=== PATIENT | male | born 1960 | race Caucasian/White ===

== ENCOUNTER → 2016-07-19 | Outpatient (CLI) | payer OTHER ==
[~2016-07-19] MED LIST: CATHETER FLUSH 10 ML SYR IV PRN; IOHEXOL 350 MG/ML 150 ML (OMNIPAQUE 350) VIAL IV ONE; NS 100 ML (IVPB) BAG IV ONE
[2016-07-19 16:47] LABS: ALANINE AMINOTRANSFERASE 16 U/L (0-55); ALBUMIN 3.9 G/DL (3.2-4.5); ANION GAP 10 MMOL/L (5-14); ASPARTATE AMINO TRANSFERASE 15 U/L (5-34); BILIRUBIN,TOTAL 0.6 MG/DL (0.1-1.0); BLOOD UREA NITROGEN 12 MG/DL (7-18); BUN/CREATININE RATIO 12; CARBON DIOXIDE 24 MMOL/L (21-32); CHLORIDE 105 MMOL/L (98-107); CREATININE SERUM 0.99 MG/DL (0.60-1.30); GFR ESTIMATED > 60; GLUCOSE 109 MG/DL (70-105); SODIUM 139 MMOL/L (135-145); TOTAL PROTEIN 6.1 G/DL (6.4-8.2)
--- NOTE | 2016-07-19 18:10 | Diagnostic Imaging Report ---
PROCEDURE: CT angiography of the chest with contrast. TECHNIQUE: Multiple contiguous axial images were obtained through the chest after uneventful bolus administration of intravenous contrast. Reconstructed CTA MIP acquisitions were also performed. INDICATION: Aortic aneurysm. Chest pain. COMPARISON: Exam compared to 04/17/2016. FINDINGS: There is some pulsation artifact, most notably at the proximal ascending aorta. Ascending aorta diameter of 4.2 cm is stable from prior. No dissection or rupture. The arch and descending thoracic aorta are stable in caliber. The visualized upper abdominal aorta is nonaneurysmal. No mediastinal or pericardial fluid or blood. There is no pleural effusion. There is no pneumothorax. No focal infiltrate. No lung mass. No thoracic lymphadenopathy. No acute soft tissue or osseous chest wall disease. Pulmonary arterial branches are patent. No evidence for PE. IMPRESSION: Ectasia of the ascending aorta, stable from prior. No appreciable dissection, mural hemorrhage, or rupture. Negative for PE. No acute abnormality or change identified. Dictated by: Dictated on workstation # [id number]
== END ==
LOC: RAD 16:11
PROVIDERS: ATTEND Nurse Practitioner Family
DX: I71.2 Thoracic aortic aneurysm, without rupture (principal)
CPT/HCPCS: 36415; 71275; 80053

== ENCOUNTER 2017-02-24 11:50 | Outpatient (CLI) | payer OTHER ==
[~2017-02-24] VITALS: Ht 182.9 cm; Wt 78.5 kg
[2017-02-25] MEDS ORDERED: ATOR40TA70 PO (10:21)
[2017-02-25] MEDS ORDERED: OMEP20TA7 PO (10:21)
[2017-02-25] MEDS ORDERED: CLON0.1T PO (10:21)
[2017-02-25] MEDS ORDERED: AMLO1TAB58 PO (10:21)
[2017-02-25] MEDS ORDERED: ASPI-586 PO (10:21)
[2017-02-25] MEDS ORDERED: CARV12.53 PO (10:21)
== END 2017-02-24 11:53 ==
LOC: PREOP 11:50
PROVIDERS: ATTEND Surgery
DX: Z01.818 Encounter for other preprocedural examination (principal); K92.1 Melena; R63.4 Abnormal weight loss; Z80.0 Family history of malignant neoplasm of digestive organs

== ENCOUNTER 2017-02-25 08:42 | Day surgery (SDC) | payer OTHER ==
[~2017-02-25] VITALS: Ht 182.9 cm; Wt 78.5 kg
[2017-02-25] MEDS ORDERED: LACTATED RINGERS 1,000 ML IV STA (09:05)
[2017-02-25] MEDS ORDERED: HURRICAINE EXT TUBE (BENZOCAINE) XX PRN (09:15)
[2017-02-25] MEDS ORDERED: FAMOTIDINE 20MG/2ML IV (PEPCID) ONE (09:28)
[2017-02-25] MEDS ORDERED: LACTATED RINGERS 1,000 ML IV ONE (09:28)
[2017-02-25] MEDS ORDERED: FAMOTIDINE 20MG/2ML IV (PEPCID) IVP ONE (09:30)
[2017-02-25 09:45] VITALS: BP 119/94
[2017-02-25] MEDS ORDERED: PROPOFOL INJECTION 50 ML IV ONE (10:12)
[2017-02-25] MEDS ORDERED: LIDOCAINE PF 2% 5 ML (XYLOCAINE) VIAL ONE (10:12)
[2017-02-25] MEDS ORDERED: OMEP20TA7 PO (10:21)
[2017-02-25] MEDS ORDERED: ASPI-586 PO (10:21)
[2017-02-25] MEDS ORDERED: CLON0.1T PO (10:21)
[2017-02-25] MEDS ORDERED: ATOR40TA70 PO (10:21)
[2017-02-25] MEDS ORDERED: AMLO1TAB58 PO (10:21)
[2017-02-25] MEDS ORDERED: CARV12.53 PO (10:21)
--- NOTE | 2017-02-25 10:21 | Progress Note-Pre Operative ---
Pre-Operative Progress Note H&P Reviewed The H&P was reviewed, patient examined and no changes noted. Date Seen by Provider: Feb 25, 2017 Time Seen by Provider: 10:20 Date H&P Reviewed: Feb 25, 2017 Time H&P Reviewed: 10:20 Pre-Operative Diagnosis: occult + stool, family hx colon cancer, weight loss DANNY BENITO DO Feb 25, 2017 10:21
--- NOTE | 2017-02-25 11:10 | Progress Note-Post Operative ---
Post-Operative Progess Note Surgeon (s)/Driver Utility Worker (s) Surgeon DANNY BENITO DO Driver Utility Worker: na Pre-Operative Diagnosis occult + stool, family hx colon cancer, weight loss Post-Operative Diagnosis slight gastritis, small hiatal hernia, normal colon Procedure & Operative Findings Date of Procedure 02/25/17 Procedure Performed/Findings egd c biopsy, colonoscopy Anesthesia Type per crusher wet ground mica Estimated Blood Loss Estimated blood loss (mL): none Specimens/Packing Specimens Removed antrum DANNY BENITO DO Feb 25, 2017 11:10
--- NOTE | 2017-02-25 11:12 | Discharge Inst-Simple/Standard ---
Discharge Inst-Standard Patient Instructions/Follow Up Plan of Care/Instructions/FU: 2 weeks adria Activity as Tolerated: Yes Discharge Diet: Regular Diet DANNY BENITO DO Feb 25, 2017 11:12
[2017-02-25 11:25] VITALS: BP 112/85
[2017-02-25 11:55] VITALS: BP 138/98
[2017-02-25 12:07] VITALS: BP 138/98
--- NOTE | 2017-02-25 15:14 | OPERATIVE REPORT ---
DATE OF SERVICE: 02/25/2017 PREOPERATIVE DIAGNOSIS: Occult positive stool, family history of colon cancer, weight loss. POSTOPERATIVE DIAGNOSIS: Slight gastritis, small hiatal hernia, normal colon. PROCEDURE: EGD with biopsy, colonoscopy. ANESTHESIA: Per CLERICAL WAREHOUSE WORKER. SURGEON: Danny Dewey DO ESTIMATED BLOOD LOSS: None. COMPLICATIONS: None. INDICATIONS: The patient is a 56-year-old male with occult positive stool, has family history of colon cancer and weight loss. He understands risks and benefits of procedures and wished to proceed with procedure. Consent was signed and on chart. DESCRIPTION OF PROCEDURE: The patient was taken to the endoscopy suite, placed in left lateral recumbent position. Timeout was performed. Scope was inserted in mouth, down the esophagus, stomach and into the duodenum without difficulty. There were no polyps, mass or ulcerations present within the duodenum. Scope was slowly retracted back. The stomach was further insufflated. Some slight erythematous changes, no polyps, masses or ulcerations. Biopsy of the antrum was obtained. Scope was also retroflexed noting no other pathology except for a small hiatal hernia. Scope was returned to its normal position, slowly withdrawn back into the distal esophagus which had no polyps, masses or ulcerations. No erythematous changes. The scope was slowly retracted back until completely removed, noting no other pathology. Digital rectal exam was performed. There were no palpable polyps, masses or ulcerations. The scope was inserted in the rectum and advanced all the way to the cecum with minimal difficulty. Prep was adequate with irrigation and suction. There are no polyps, mass or ulcerations in the cecum, ascending, transverse, descending and sigmoid colon. In the rectum, it was also retroflexed noting no other pathology. Scope was returned to its normal position, slowly withdrawn until completely removed. The patient tolerated the procedure well without any complications and taken to recovery room in stable condition. RECOMMENDATIONS: The patient will continue on current medications. We will follow up in 2 weeks on the biopsy. If he has any problems prior to that, he should be reevaluated at that time. Since he has family history of colon cancer, need repeat colonoscopy in 5 years unless he has any problems prior to that, he should be reevaluated at that time. Job ID: [id number] DocumentID: [id number] Dictated Date: 02/25/2017 11:14:33 Inspector Weights And Measures Date: 02/25/2017 15:13:40 Dictated By: DANNY DEWEY DO
== END 2017-02-25 12:08 | disposition home or self-care (01) ==
LOC: ENDO 08:42
PROVIDERS: ATTEND Surgery
DX: K29.70 Gastritis, unspecified, without bleeding (principal); K44.9 Diaphragmatic hernia without obstruction or gangrene; Z80.0 Family history of malignant neoplasm of digestive organs; I11.0 Hypertensive heart disease with heart failure; E78.5 Hyperlipidemia, unspecified; I50.9 Heart failure, unspecified; Z87.891 Personal history of nicotine dependence; Z79.82 Long term (current) use of aspirin; Z79.899 Other long term (current) drug therapy
CPT/HCPCS: 88305; 88342

== ENCOUNTER → 2017-03-19 | Outpatient (CLI) | payer OTHER ==
[~2017-03-19] MED LIST changes: +AMLO1TAB58 PO; +ASPI-586 PO; +ATOR40TA70 PO; +CARV12.53 PO; -CATHETER FLUSH 10 ML SYR IV PRN; +CLON0.1T PO; +OMEP20TA7 PO
[2017-03-19 11:10] LABS: BLOOD UREA NITROGEN 13 MG/DL (7-18); BUN/CREATININE RATIO 15; CREATININE SERUM 0.84 MG/DL (0.60-1.30); GFR ESTIMATED > 60
--- NOTE | 2017-03-19 13:03 | Diagnostic Imaging Report ---
PROCEDURE: CT angiography of the chest with and without contrast and CT of the abdomen and pelvis with and without contrast. TECHNIQUE: Non contrast-enhanced helical images were obtained through the chest, abdomen and pelvis. Contrast-enhanced thin section helical images were obtained through the chest, abdomen and pelvis with intravenous contrast timed for the optimal opacification of the arterial structures per departmental CTA protocol. Post-processing, retro reconstructions and interpretation of angiographic images of the vessels was performed. MIP reconstructions were performed and reviewed. INDICATION: Abdominal pain, weight loss, history of aortic aneurysm. COMPARISON: Chest CT performed on 07/19/2016 is available for comparison. No previous abdominopelvic imaging. FINDINGS: Chest: Aneurysmal dilatation of the ascending aorta measures 4.4 cm in maximal transverse diameter, previously 4.3 cm. Root of the sinotubular junction is 3.6 cm, stable. No dissection, mural hemorrhage, or rupture. Arch and descending thoracic aorta showed normal tapering distally and the aorta at the level of the diaphragmatic hiatus is unchanged at 2.9 cm. The pulmonary arterial branches are widely patent. There is no PE. There is no lung mass or acute infiltrate. No effusion or pneumothorax. No thoracic adenopathy. No acute soft tissue or osseous chest wall pathology. Abdomen and pelvis: Partly exophytic and oriented posteromedially off the lower pole of the left kidney is a heterogeneously enhancing soft tissue nodule measuring 2.3 x 1.6 cm. Just anterolateral to this solid mural nodule is a more simple-appearing cyst measuring 4.5 x 3.0 cm. This process is below the teswv-bi-wvzw of all previous chest CTs. Renal malignancy is suspected. An incidental midpole simple cyst measuring 1 cm is noted, separable from this process. The adrenal glands bilaterally are negative. The renal veins are patent. The cava is patent. There is no adrenal mass. Some tiny 5 to 6 mm periaortic retroperitoneal lymph nodes are within normal limits. No suspicious-appearing abdominal lymphadenopathy. The liver, gallbladder, bile ducts, spleen, and pancreas are negative. The celiac, the superior mesenteric, and the inferior mesenteric arteries as well as those vessels primary branches are all widely patent. The renal arteries bilaterally are widely patent. The abdominal aorta shows normal tapering and is nonaneurysmal. No mural hemorrhage, dissection, rupture, stenosis, or occlusion. The aortic bifurcation is patent. The common internal and external iliacs as well as common femorals and proximal SFAs and profunda branches are widely patent, normal in caliber, and unremarkable. No pelvic lymphadenopathy, ascites, or fluid collection. No destructive or suspicious osseous lesion. IMPRESSION: 1. Chest: Unruptured ascending aortic aneurysm measures 1 mm larger than prior without mural hemorrhage, dissection, or involvement of the great vessels. Negative for PE. No pulmonary nodule or thoracic lymphadenopathy. 2. CT abdomen: Exophytic heterogeneously enhancing solid mass in the right renal lower pole oriented posteriorly with an associated adjacent unilocular cyst. Renal cell carcinoma cannot be excluded. Urological consultation is advised. The adrenals are negative. There is no lymphadenopathy and there were no findings of metastatic disease. 3. Patent abdominal aorta, nonaneurysmal, with widely patent mesenteric and renal vascularity. 4. Pelvis: Vascular structures are normal. No lymphadenopathy, mass, ascites, or bony lesion. Dictated by: Dictated on workstation # [id number]
== END ==
LOC: RAD 10:38
PROVIDERS: ATTEND Nurse Practitioner Family
DX: N28.89 Other specified disorders of kidney and ureter; N28.1 Cyst of kidney, acquired; I71.2 Thoracic aortic aneurysm, without rupture
CPT/HCPCS: 36415; 71275; 74174; 82565; 84520

== ENCOUNTER → 2017-04-03 | Outpatient (CLI) | payer OTHER ==
[~2017-04-03] MED LIST changes: +GADOBUTROL 10 MMOL/10 ML (GADAVIST) VIAL IV ONE; -IOHEXOL 350 MG/ML 150 ML (OMNIPAQUE 350) VIAL IV ONE; -NS 100 ML (IVPB) BAG IV ONE
--- NOTE | 2017-04-03 12:56 | Diagnostic Imaging Report ---
PROCEDURE: MR imaging abdomen with and without contrast. TECHNIQUE: Multiplanar/multisequence MR imaging of the abdomen was performed with and without contrast. INDICATION: Weight loss. CONTRAST: 8 mL of Gadovist was administered intravenously. FINDINGS: There is a complex mass in the lower pole of the left kidney with a nodular solid enhancing component measuring 2.8 x 2.6 x 2 cm. There is a larger nonenhancing cystic component with a solid component measuring 4.1 x 3.8 x 4 cm. This is compatible with the Bosniak 4 complex cystic lesion, concerning for renal cell carcinoma. There is a simple cyst seen in the upper pole of the right kidney measuring 1.6 cm and other tiny fluid intensity lesions of less than 1 cm in the right kidney, too small to accurately characterize but likely related to cysts also. A similar finding in the left kidney is seen. The renal collecting system is normal with no hydronephrosis. The right renal vein appears patent. No lymphadenopathy in the upper abdomen is seen. The spleen, adrenal glands, liver, and gallbladder appear unremarkable. IMPRESSION: Complex mass in the lower pole of the right kidney with a predominantly cystic component and a 2.8 cm internal solid nodule, suggestive of renal cell carcinoma. The report was faxed to the office of Darci Kuo APRN, by [email or web address] PM. Dictated by: Dictated on workstation # [id number]
== END ==
LOC: RAD 09:17
PROVIDERS: ATTEND Nurse Practitioner Family
DX: N28.89 Other specified disorders of kidney and ureter (principal)
CPT/HCPCS: 74183

== ENCOUNTER → 2017-05-01 | Outpatient (CLI) | payer OTHER ==
[~2017-05-01] MED LIST changes: -GADOBUTROL 10 MMOL/10 ML (GADAVIST) VIAL IV ONE
== END ==
LOC: CARD 13:24
PROVIDERS: ATTEND Nurse Practitioner Family
DX: I71.9 Aortic aneurysm of unspecified site, without rupture (principal)
CPT/HCPCS: 93306

== ENCOUNTER → 2017-05-07 | Outpatient (CLI) | payer OTHER ==
[~2017-05-07] MED LIST changes: +CATHETER FLUSH 10 ML SYR IV PRN; +REGADENOSON 0.4 MG/5 ML SYR (LEXISCAN) IV ONE
--- NOTE | 2017-05-07 22:07 | STRESS TEST ---
DATE OF SERVICE: 05/07/2017 LEXISCAN MYOVIEW STRESS TEST REPORT REFERRING PHYSICIAN: Mariia Simon DO, [facility]. Baseline heart rate is 57. Baseline blood pressure 114/78. Baseline EKG is sinus rhythm with no ischemic changes. SUMMARY: The patient was injected with 10.88 mCi of technetium-99 Myoview and the resting images were obtained. Then, the patient received 0.4 mg of Lexiscan followed by 29.2 mCi of technetium-99 Myoview. Throughout the test, there were no EKG changes. The resting and stress images were reviewed and compared in the short axis, horizontal long axis and vertical long axis views. Review of the images showed diaphragmatic attenuation with no significant ischemia or infarction. SSS is 0. TID value is 1.07. On the gated images, the left ventricle appeared to be in normal size with normal contractility. Calculated ejection fraction 68%. CONCLUSION: 1. The patient tolerated Lexiscan well. 2. No significant ischemia or infarction on SPECT images. 3. Normal left ventricular size with normal contractility. Calculated ejection fraction 68%. Job ID: [id number] DocumentID: [id number] Dictated Date: 05/07/2017 14:22:11 Foundry Melt Supervisor Date: 05/07/2017 18:35:19 Dictated By: ANJELICA SHAFFER MD
== END ==
LOC: CARD 07:00
PROVIDERS: ATTEND Nurse Practitioner Family
DX: I71.9 Aortic aneurysm of unspecified site, without rupture (principal)
CPT/HCPCS: 78452; 93017

== ENCOUNTER → 2017-09-15 | Outpatient (CLI) | payer OTHER ==
[~2017-09-15] MED LIST changes: -CATHETER FLUSH 10 ML SYR IV PRN; -REGADENOSON 0.4 MG/5 ML SYR (LEXISCAN) IV ONE
--- NOTE | 2017-09-15 09:03 | Diagnostic Imaging Report ---
PROCEDURE: US Abdomen, limited. TECHNIQUE: Multiple realtime grayscale images were obtained over the abdomen in various projections. INDICATION: Right groin pain with intermittent bulging. Prior right nephrectomy. COMPARISON: None FINDINGS: Targeted ultrasound is performed over the right groin in the region of the palpable complaint. This is towards the medial end of scar on the abdominal wall. In this region, there is a 1.6 cm irregular hypoechoic lesion. There is no peristalsing bowel and there is no change with Valsalva. The patient was unable to reproduce the bulge for today's exam. This may represent some scarring rather than hernia although small hernia difficult to entirely exclude. IMPRESSION: 1.6 cm irregular hypoechoic lesion seen in the right groin near the medial end of the abdominal wall scar probably related to scarring although a subtle hernia not entirely excluded. No peristalsing bowel or change with Valsalva is seen, however. Dictated by: Dictated on workstation # [id number]
== END ==
LOC: RAD 07:59
PROVIDERS: ATTEND Nurse Practitioner Family
DX: R19.09 Other intra-abdominal and pelvic swelling, mass and lump (principal)
CPT/HCPCS: 76705

== ENCOUNTER 2017-10-01 05:36 | Outpatient (CLI) | payer OTHER ==
[~2017-10-01] VITALS: Ht 182.9 cm; Wt 78.5 kg
[2017-10-03] MEDS ORDERED: DOCU-143 PO (09:20)
[2017-10-03] MEDS ORDERED: ACHD5005 PO (09:20)
== END 2017-10-01 09:19 ==
LOC: PREOP 05:36
PROVIDERS: ATTEND Surgery
DX: Z01.818 Encounter for other preprocedural examination (principal); K40.90 Unilateral inguinal hernia, without obstruction or gangrene, not specified as recurrent

== ENCOUNTER 2017-10-03 05:58 | Day surgery (SDC) | payer OTHER ==
[~2017-10-03] VITALS: Ht 182.9 cm; Wt 78.5 kg
--- OUTSIDE RECORDS SUMMARY | 2017-10-03 06:02 | XMS REPORT | Continuity of Care Document ---
Author Author [facility] Organization [facility] Address Unknown Phone Unavailable Allergies Active Description Code Type Severity Reaction Onset Reported/Identified Relationship to Patient Clinical Status Yes No Allergy Information Available [id number] Drug Allergy Unknown N/A 2015 Yes No Known Drug Allergies [id number] Drug Allergy Unknown N/A 02/24/2017 Medications There is no data. Problems Date Dx Coded Attending Type Code Diagnosis Diagnosed By 05/03/2015 AWAIS RODRIGUEZ AUCTION CLERK Ot I71.9 05/08/2015 AWAIS RODRIGUEZ AUCTION CLERK Ot I71.9 05/08/2015 AWAIS RODRIGUEZ AUCTION CLERK Ot I71.9 06/14/2015 AWAIS RODRIGUEZ AUCTION CLERK Ot I71.9 07/14/2015 ANJELICA SHAFFER MD Ot I71.2 07/17/2015 AWAIS RODRIGUEZ AUCTION CLERK Ot I71.9 07/17/2015 AWAIS RODRIGUEZ AUCTION CLERK Ot I71.2 07/17/2015 ANJELICA SHAFFER MD J Ot I71.2 08/05/2015 ANJELICA SHAFFER MD Ot I71.2 04/09/2016 AWAIS RODRIGUEZ AUCTION CLERK Ot I71.9 AORTIC ANEURYSM OF UNSPECIFIED SITE, WIT 04/09/2016 AWAIS RODRIGUEZ AUCTION CLERK Ot I71.2 THORACIC AORTIC ANEURYSM, WITHOUT RUPTUR 04/09/2016 EDMUND KAN, ANJELICA J Ot I71.2 THORACIC AORTIC ANEURYSM, WITHOUT RUPTUR 04/10/2016 CRISTOFER FLORES AUCTION CLERK Ot I71.9 AORTIC ANEURYSM OF UNSPECIFIED SITE, WIT 04/18/2016 Ot I71.9 AORTIC ANEURYSM OF UNSPECIFIED SITE, WIT 04/19/2016 Ot I71.9 AORTIC ANEURYSM OF UNSPECIFIED SITE, WIT 05/14/2016 CRISTOFER FLORES AUCTION CLERK Ot I71.9 AORTIC ANEURYSM OF UNSPECIFIED SITE, WIT 07/19/2016 AWAIS RODRIGUEZ AUCTION CLERK Ot I71.9 AORTIC ANEURYSM OF UNSPECIFIED SITE, WIT 07/19/2016 AWAIS RODRIGUEZ AUCTION CLERK Ot I71.2 THORACIC AORTIC ANEURYSM, WITHOUT RUPTUR 07/19/2016 EDMUND KAN, ANJELICA Garcia Ot I71.2 THORACIC AORTIC ANEURYSM, WITHOUT RUPTUR 07/19/2016 FLORESCRISTOFER Pineda AUCTION CLERK Ot I71.9 AORTIC ANEURYSM OF UNSPECIFIED SITE, WIT 07/19/2016 Ot I71.9 AORTIC ANEURYSM OF UNSPECIFIED SITE, WIT 07/22/2016 CRISTOFER FLORES AUCTION CLERK Ot I71.2 THORACIC AORTIC ANEURYSM, WITHOUT RUPTUR 07/23/2016 CRISTOFER FLORES AUCTION CLERK Ot I71.2 THORACIC AORTIC ANEURYSM, WITHOUT RUPTUR 07/25/2016 FLORESCRISTOFER Pineda AUCTION CLERK Ot I71.2 THORACIC AORTIC ANEURYSM, WITHOUT RUPTUR 02/24/2017 DANNY BENITO DO Ot K92.1 MELENA 02/24/2017 DANNY BENITO DO Ot R63.4 ABNORMAL WEIGHT LOSS 02/24/2017 DANNY BENITO DO Ot Z01.818 ENCOUNTER FOR OTHER PREPROCEDURAL EXAMIN 02/24/2017 DANNY BENITO DO Ot Z80.0 FAMILY HISTORY OF MALIGNANT NEOPLASM OF 02/24/2017 DANNY BENITO DO Ot K92.1 MELENA 02/24/2017 DANNY BENITO DO Ot R63.4 ABNORMAL WEIGHT LOSS 02/24/2017 DANNY BENITO DO Ot Z01.818 ENCOUNTER FOR OTHER PREPROCEDURAL EXAMIN 02/24/2017 DANNY BENITO DO Ot Z80.0 FAMILY HISTORY OF MALIGNANT NEOPLASM OF 02/25/2017 DANNY BENITO DO Ot E78.5 HYPERLIPIDEMIA, UNSPECIFIED 02/25/2017 DANNY BENITO DO Ot I11.0 HYPERTENSIVE HEART DISEASE WITH HEART FA 02/25/2017 DANNY BENITO DO Ot I50.9 HEART FAILURE, UNSPECIFIED 02/25/2017 DANNY BENITO DO Ot K29.70 GASTRITIS, UNSPECIFIED, WITHOUT BLEEDING 02/25/2017 DANNY BENITO DO Ot K44.9 DIAPHRAGMATIC HERNIA WITHOUT OBSTRUCTION 02/25/2017 BENITO DO, DANNY D Ot Z79.82 LOAN REVIEW ANALYST (CURRENT) USE OF ASPIRIN 02/25/2017 BENITO DO DANNY D Ot Z79.899 OTHER LOAN REVIEW ANALYST (CURRENT) DRUG THERAPY 02/25/2017 BENITO DO DANNY D Ot Z80.0 FAMILY HISTORY OF MALIGNANT NEOPLASM OF 02/25/2017 BENITO DO DANNY D Ot Z87.891 PERSONAL HISTORY OF NICOTINE DEPENDENCE 03/04/2017 BENITO DO DANNY D Ot E78.5 HYPERLIPIDEMIA, UNSPECIFIED 03/04/2017 BENITO DO, DANNY D Ot I11.0 HYPERTENSIVE HEART DISEASE WITH HEART FA 03/04/2017 BENITO DO, DANNY D Ot I50.9 HEART FAILURE, UNSPECIFIED 03/04/2017 BENITO DO, DANNY D Ot K29.70 GASTRITIS, UNSPECIFIED, WITHOUT BLEEDING 03/04/2017 BENITO DO, DANNY D Ot K44.9 DIAPHRAGMATIC HERNIA WITHOUT OBSTRUCTION 03/04/2017 BENITO DO, DANNY D Ot Z79.82 LOAN REVIEW ANALYST (CURRENT) USE OF ASPIRIN 03/04/2017 BENITO DO DANNY D Ot Z79.899 OTHER LOAN REVIEW ANALYST (CURRENT) DRUG THERAPY 03/04/2017 BENITO DO, DANNY D Ot Z80.0 FAMILY HISTORY OF MALIGNANT NEOPLASM OF 03/04/2017 BENITO DO DANNY D Ot Z87.891 PERSONAL HISTORY OF NICOTINE DEPENDENCE 03/05/2017 BENITO DO DANNY D Ot E78.5 HYPERLIPIDEMIA, UNSPECIFIED 03/05/2017 BENITO DO, DANNY D Ot I11.0 HYPERTENSIVE HEART DISEASE WITH HEART FA 03/05/2017 THONG DO DANNY D Ot I50.9 HEART FAILURE, UNSPECIFIED 03/05/2017 BENITO DO, DANNY D Ot K29.70 GASTRITIS, UNSPECIFIED, WITHOUT BLEEDING 03/05/2017 BENITO DO, DANNY D Ot K44.9 DIAPHRAGMATIC HERNIA WITHOUT OBSTRUCTION 03/05/2017 BENITO DO DANNY D Ot Z79.82 CORRECTION (CURRENT) USE OF ASPIRIN 03/05/2017 BENITO DO DANNY D Ot Z79.899 OTHER LOAN REVIEW ANALYST (CURRENT) DRUG THERAPY 03/05/2017 BENITO DO, DANNY D Ot Z80.0 FAMILY HISTORY OF MALIGNANT NEOPLASM OF 03/05/2017 BENITO DO DANNY D Ot Z87.891 PERSONAL HISTORY OF NICOTINE DEPENDENCE 03/12/2017 THONG SHELLDANNY Ot E78.5 HYPERLIPIDEMIA, UNSPECIFIED 03/12/2017 THONG SHELLDANNY Ot I11.0 HYPERTENSIVE HEART DISEASE WITH HEART FA 03/12/2017 BENITO DANNY SHELL Ot I50.9 HEART FAILURE, UNSPECIFIED 03/12/2017 THONG SHELLDANNY Ot K29.70 GASTRITIS, UNSPECIFIED, WITHOUT BLEEDING 03/12/2017 THONG SHELLDANNY Ot K44.9 DIAPHRAGMATIC HERNIA WITHOUT OBSTRUCTION 03/12/2017 THONG SHELLDANNY Ot Z79.82 CORRECTION (CURRENT) USE OF ASPIRIN 03/12/2017 BENITO DANNY Ot Z79.899 OTHER CORRECTION (CURRENT) DRUG THERAPY 03/12/2017 DANNY BENITO DO Ot Z80.0 FAMILY HISTORY OF MALIGNANT NEOPLASM OF 03/12/2017 THONG SHELLDANNY Ot Z87.891 PERSONAL HISTORY OF NICOTINE DEPENDENCE 03/20/2017 CRISTOFER FLORES AUCTION CLERK Ot I71.2 THORACIC AORTIC ANEURYSM, WITHOUT RUPTUR 03/20/2017 CRISTOFER FLORES AUCTION CLERK Ot N28.1 CYST OF KIDNEY, ACQUIRED 03/20/2017 CRISTOFER FLORES AUCTION CLERK Ot N28.89 OTHER SPECIFIED DISORDERS OF KIDNEY AND 09/25/2017 AWAIS RODRIGUEZ AUCTION CLERK Ot I71.9 AORTIC ANEURYSM OF UNSPECIFIED SITE, WIT 09/25/2017 AWAIS RODRIGUEZ AUCTION CLERK Ot I71.2 THORACIC AORTIC ANEURYSM, WITHOUT RUPTUR 09/25/2017 EDMUND KAN, ANJELICA Garcia Ot I71.2 THORACIC AORTIC ANEURYSM, WITHOUT RUPTUR 09/25/2017 CRISTOFER FLORES AUCTION CLERK Ot I71.9 AORTIC ANEURYSM OF UNSPECIFIED SITE, WIT 09/25/2017 Ot I71.9 AORTIC ANEURYSM OF UNSPECIFIED SITE, WIT 09/25/2017 CRISTOFER FLORES AUCTION CLERK Ot I71.2 THORACIC AORTIC ANEURYSM, WITHOUT RUPTUR 09/25/2017 CRISTOFER FLORES AUCTION CLERK Ot I71.2 THORACIC AORTIC ANEURYSM, WITHOUT RUPTUR 09/25/2017 CRISTOFER FLORES AUCTION CLERK Ot N28.1 CYST OF KIDNEY, ACQUIRED 09/25/2017 CRISTOFER FLORES AUCTION CLERK Ot N28.89 OTHER SPECIFIED DISORDERS OF KIDNEY AND 09/25/2017 CRISTOFER FLORES AUCTION CLERK Ot N28.89 OTHER SPECIFIED DISORDERS OF KIDNEY AND 09/25/2017 CRISTOFER FLORES AUCTION CLERK Ot I71.9 AORTIC ANEURYSM OF UNSPECIFIED SITE, WIT 09/25/2017 CRISTOFER FLORES AUCTION CLERK Ot I71.9 AORTIC ANEURYSM OF UNSPECIFIED SITE, WIT 09/25/2017 CRISTOFER FLORES AUCTION CLERK Ot R19.09 OTHER INTRA-ABDOMINAL AND PELVIC SWELLIN Procedures There is no data. Results Test Result Range [id number] - 04/09/16 10:59 Serum or plasma urea nitrogen measurement (mass/volume) 11 mg/dL 7-18 Serum or plasma creatinine measurement (mass/volume) 0.90 mg/dL 0.60-1.30 Serum or plasma urea nitrogen/creatinine mass ratio 12 NRG Serum or plasma creatinine measurement with calculation of estimated glomerular filtration rate > NRG CBC With Differential/Platelet - 06/07/16 08:13 WBC 6.8 x10E3/uL 3.4-10.8 RBC 4.53 x10E6/uL 4.14-5.80 Hemoglobin 13.1 g/dL 12.6-17.7 Hematocrit 38.5 % 37.5-51.0 MCV 85 fL 79-97 MCH 28.9 pg 26.6-33.0 MCHC 34.0 g/dL 31.5-35.7 RDW 13.1 % 12.3-15.4 Platelets 184 x10E3/uL 150-379 Neutrophils 64 % Lymphs 24 % Monocytes 9 % Eos 2 % Basos 1 % Neutrophils (Absolute) 4.4 x10E3/uL 1.4-7.0 Lymphs (Absolute) 1.6 x10E3/uL 0.7-3.1 Monocytes(Absolute) 0.6 x10E3/uL 0.1-0.9 Eos (Absolute) 0.2 x10E3/uL 0.0-0.4 Baso (Absolute) 0.0 x10E3/uL 0.0-0.2 Immature Granulocytes 0 % Immature Grans (Abs) 0.0 x10E3/uL 0.0-0.1 Comp. Metabolic Panel (14) - 06/07/16 08:13 Glucose, Serum 100 mg/dL 65-99 BUN 12 mg/dL 6-24 Creatinine, Serum 0.89 mg/dL 0.76-1.27 eGFR If NonAfricn Am 96 mL/min/1.73 >59 eGFR If Africn Am 111 mL/min/1.73 >59 BUN/Creatinine Ratio 13 9-20 Sodium, Serum 145 mmol/L 134-144 Potassium, Serum 4.1 mmol/L 3.5-5.2 Chloride, Serum 106 mmol/L 96-106 Carbon Dioxide, Total 25 mmol/L 18-29 Calcium, Serum 9.5 mg/dL 8.7-10.2 Protein, Total, Serum 6.3 g/dL 6.0-8.5 Albumin, Serum 3.8 g/dL 3.5-5.5 Globulin, Total 2.5 g/dL 1.5-4.5 A/G Ratio 1.5 1.1-2.5 Bilirubin, Total 0.5 mg/dL 0.0-1.2 Alkaline Phosphatase, S 87 IU/L 39-117 AST (SGOT) 18 IU/L 0-40 ALT (SGPT) 16 IU/L 0-44 Lipid Panel - 06/07/16 08:13 Cholesterol, Total 126 mg/dL 100-199 Triglycerides 111 mg/dL 0-149 HDL Cholesterol 38 mg/dL >39 VLDL Cholesterol Fermin 22 mg/dL 5-40 LDL Cholesterol Calc 66 mg/dL 0-99 Hemoglobin A1c - 06/07/16 08:13 Hemoglobin A1c 5.6 % 4.8-5.6 Thyroid Rock Profile - 06/07/16 08:13 TSH 1.180 uIU/mL 0.450-4.500 Comprehensive metabolic panel - 07/19/16 16:20 Serum or plasma sodium measurement (moles/volume) 139 mmol/L 135-145 Serum or plasma potassium measurement (moles/volume) 4.0 mmol/L 3.6-5.0 Serum or plasma chloride measurement (moles/volume) 105 mmol/L 98-107 Carbon dioxide 24 mmol/L 21-32 Serum or plasma anion gap determination (moles/volume) 10 mmol/L 5-14 Serum or plasma urea nitrogen measurement (mass/volume) 12 mg/dL 7-18 Serum or plasma creatinine measurement (mass/volume) 0.99 mg/dL 0.60-1.30 Serum or plasma urea nitrogen/creatinine mass ratio 12 NRG Serum or plasma creatinine measurement with calculation of estimated glomerular filtration rate > NRG Serum or plasma glucose measurement (mass/volume) 109 mg/dL 70-105 Serum or plasma calcium measurement (mass/volume) 9.0 mg/dL 8.5-10.1 Serum or plasma total bilirubin measurement (mass/volume) 0.6 mg/dL 0.1-1.0 Serum or plasma alkaline phosphatase measurement (enzymatic activity/volume) 85 U/L 40-136 Serum or plasma aspartate aminotransferase measurement (enzymatic activity/ volume) 15 U/L 5-34 Serum or plasma alanine aminotransferase measurement (enzymatic activity/volume ) 16 U/L 0-55 Serum or plasma protein measurement (mass/volume) 6.1 g/dL 6.4-8.2 Serum or plasma albumin measurement (mass/volume) 3.9 g/dL 3.2-4.5 CBC With Differential/Platelet - 01/13/17 16:02 WBC 5.7 x10E3/uL 3.4-10.8 RBC 4.28 x10E6/uL 4.14-5.80 Hemoglobin 12.3 g/dL 12.6-17.7 Hematocrit 35.4 % 37.5-51.0 MCV 83 fL 79-97 MCH 28.7 pg 26.6-33.0 MCHC 34.7 g/dL 31.5-35.7 RDW 13.4 % 12.3-15.4 Platelets 148 x10E3/uL 150-379 Neutrophils 64 % Lymphs 26 % Monocytes 8 % Eos 2 % Basos 0 % Neutrophils (Absolute) 3.7 x10E3/uL 1.4-7.0 Lymphs (Absolute) 1.5 x10E3/uL 0.7-3.1 Monocytes(Absolute) 0.4 x10E3/uL 0.1-0.9 Eos (Absolute) 0.1 x10E3/uL 0.0-0.4 Baso (Absolute) 0.0 x10E3/uL 0.0-0.2 Immature Granulocytes 0 % Immature Grans (Abs) 0.0 x10E3/uL 0.0-0.1 Comp. Metabolic Panel (14) - 01/13/17 16:02 Glucose, Serum 111 mg/dL 65-99 BUN 17 mg/dL 6-24 Creatinine, Serum 1.22 mg/dL 0.76-1.27 eGFR If NonAfricn Am 66 mL/min/1.73 >59 eGFR If Africn Am 77 mL/min/1.73 >59 BUN/Creatinine Ratio 14 9-20 Sodium, Serum 136 mmol/L 134-144 Potassium, Serum 3.7 mmol/L 3.5-5.2 Chloride, Serum 97 mmol/L 96-106 Carbon Dioxide, Total 22 mmol/L 18-29 Calcium, Serum 9.1 mg/dL 8.7-10.2 Protein, Total, Serum 6.1 g/dL 6.0-8.5 Albumin, Serum 3.8 g/dL 3.5-5.5 Globulin, Total 2.3 g/dL 1.5-4.5 A/G Ratio 1.7 1.2-2.2 Bilirubin, Total 0.6 mg/dL 0.0-1.2 Alkaline Phosphatase, S 89 IU/L 39-117 AST (SGOT) 15 IU/L 0-40 ALT (SGPT) 10 IU/L 0-44 Vitamin D, 25-Hydroxy - 01/13/17 16:02 Vitamin D, 25-Hydroxy 32.3 ng/mL 30.0-100.0 Thyroid Rock Profile - 01/13/17 16:02 TSH 1.410 uIU/mL 0.450-4.500 [id number] - 03/19/17 10:49 Serum or plasma urea nitrogen measurement (mass/volume) 13 mg/dL 7-18 Serum or plasma creatinine measurement (mass/volume) 0.84 mg/dL 0.60-1.30 Serum or plasma urea nitrogen/creatinine mass ratio 15 NRG Serum or plasma creatinine measurement with calculation of estimated glomerular filtration rate > NRG Encounters ACCT No. Visit Date/Time Discharge Status Pt. Type Provider Facility Loc./Unit Complaint [id number] 10/01/2017 05:36:00 10/01/2017 09:19:00 DIS Outpatient DANNY BENITO DO [facility] PREOP RIGHT INGUINAL HERNIA [id number] 09/15/2017 07:59:00 09/15/2017 23:59:59 CLS Outpatient CRISTOFER FLORES AUCTION CLERK [facility] RAD RT GROIN PAIN R10.31 [id number] 05/07/2017 07:00:00 05/07/2017 23:59:59 CLS Outpatient CRISTOFER FLORES AUCTION CLERK [facility] CARD AORTIC ANEURYSM [id number] 05/01/2017 13:24:00 05/01/2017 23:59:59 CLS Outpatient CRISTOFER FLORES AUCTION CLERK [facility] CARD I71.9 [id number] 04/03/2017 09:17:00 04/03/2017 23:59:59 CLS Outpatient CRISTOFER FLORES AUCTION CLERK [facility] RAD WEIGHT LOSS [id number] 03/19/2017 10:38:00 03/19/2017 23:59:59 CLS Outpatient CRISTOFER FLORES AUCTION CLERK [facility] RAD I71.9 AORTIC ANEURYSM [id number] 03/14/2017 09:23:00 03/14/2017 23:59:59 CLS Preadmit CRISTOFER FLORES AUCTION CLERK [facility] RAD WEIGHT LOSS [id number] 02/25/2017 08:42:00 02/25/2017 12:08:00 DIS Outpatient DANNY BENITO DO [facility] ENDO OCCULT POS. FAM HX WT LOSS [id number] 02/24/2017 11:50:00 02/24/2017 11:53:00 DIS Outpatient DANNY BENITO DO [facility] PREOP COLONOSCOPY/ EGD [id number] 01/27/2017 07:29:00 01/27/2017 23:59:59 CLS Preadmit CRISTOFER FLORES AUCTION CLERK [facility] RAD AORTIC ANEURYSM [id number] 07/19/2016 16:11:00 07/19/2016 23:59:59 CLS Outpatient CRISTOFER FLORES AUCTION CLERK [facility] RAD THORACIC AORTIC ANEURYSM [id number] 04/09/2016 10:44:00 04/09/2016 23:59:59 CLS Outpatient CRISTOFER FLORES AUCTION CLERK [facility] RAD I71.9 [id number] 07/11/2015 14:23:00 07/11/2015 23:59:59 CLS Outpatient EDMUND KAN, ANJELICA Garcia [facility] RAD THORAIC AORTO ANYURESUM [id number] 06/14/2015 14:15:00 06/14/2015 23:59:59 CLS Outpatient AWAIS RODRIGUEZ APRN [facility] RAD AORTIC ANEURYSM [id number] 05/01/2015 08:47:00 05/01/2015 23:59:59 CLS Outpatient AWAIS RODRIGUEZ APRN [facility] RAD AA [id number] 10/03/2017 08:00:00 PEN Preadmit DANNY BENITO DO [facility] RIGHT INGUINAL HERNIA [id number] 04/17/2016 08:56:00 Document Registration [id number] 06/08/2016 08:06:00 Document Registration [id number] 08/30/2017 12:50:00 08/30/2017 23:59:59 CLS Outpatient CRISTOFER FLORES [facility] [id number] 01/14/2017 11:07:00 Document Registration
[2017-10-03 06:10] VITALS: BP 148/99
[2017-10-03] MEDS ORDERED: ceFAZolin 2 GM IV Premixed 50 ML IV ONE (06:30)
[2017-10-03] MEDS: LACTATED RINGERS 1,000 ML IV PRN ×2 (06:55→09:00)
[2017-10-03] MEDS ORDERED: LACTATED RINGERS 1,000 ML IV PRN (07:20)
[2017-10-03] MEDS ORDERED: LIDOCAINE 1% INJ 20 ML 20 ML VIAL ONE (07:26)
[2017-10-03] MEDS ORDERED: BUPIVACAINE 0.5% 30 ML (SENSORCAINE) VIAL ONE (07:26)
[2017-10-03] MEDS ORDERED: PROPOFOL INJECTION 50 ML IV ONE (07:29)
[2017-10-03] MEDS ORDERED: ROCURONIUM 10 MG/ML 5 ML SYRINGE IV ONE (07:29)
[2017-10-03] MEDS ORDERED: ONDANSETRON 4 MG/2 ML (SDV) Z0FRAN ONE (07:29)
[2017-10-03] MEDS ORDERED: fentaNYL INJECTION 100 MCG/2 ML AMP ONE (07:29)
[2017-10-03] MEDS ORDERED: DEXAMETHASONE 10 MG/ML (DECADRON) 1 ML VIAL ONE (07:29)
[2017-10-03] MEDS ORDERED: LIDOCAINE PF 2% 5 ML (XYLOCAINE) VIAL ONE (07:29)
[2017-10-03] MEDS ORDERED: FAMOTIDINE 20MG/2ML IV (PEPCID) IV ONE (07:30)
[2017-10-03] MEDS ORDERED: MIDAZOLAM 2 MG/2 ML (VERSED) VIAL ONE (07:30)
[2017-10-03] MEDS ORDERED: SEVOFLURANE (ULTANE) 15 ML INHAL SOLN ONE (08:36)
[2017-10-03] MEDS ORDERED: GLYCOPYRROLATE 0.2 MG/ML (ROBINUL) 2 ML VIAL ONE (08:36)
[2017-10-03] MEDS ORDERED: NEOSTIGMINE 1 MG/ML 5 ML SYRINGE ONE (08:36)
[2017-10-03] MEDS ORDERED: KETOROLAC 30 MG/ML VIAL ONE (09:08)
--- NOTE | 2017-10-03 09:16 | Progress Note-Pre Operative ---
Pre-Operative Progress Note H&P Reviewed The H&P was reviewed, patient examined and no changes noted. Date Seen by Provider: Oct 03, 2017 Time Seen by Provider: 08:00 Date H&P Reviewed: Oct 03, 2017 Time H&P Reviewed: 08:00 Pre-Operative Diagnosis: right inguinal hernia DANNY BENITO DO Oct 03, 2017 09:16
--- NOTE | 2017-10-03 09:17 | Progress Note-Post Operative ---
Post-Operative Progess Note Surgeon (s)/Secretary To Board Of Commissioners (s) Surgeon DANNY BENITO DO Secretary To Board Of Commissioners: na Pre-Operative Diagnosis right inguinal hernia Post-Operative Diagnosis indirect inguinal hernia right Procedure & Operative Findings Date of Procedure 10/03/17 Procedure Performed/Findings open right inguinal hernia Anesthesia Type general Estimated Blood Loss Estimated blood loss (mL): minimal Specimens/Packing Specimens Removed hernia sac DANNY BENITO DO Oct 03, 2017 09:17
[2017-10-03] MEDS ORDERED: DOCU-143 PO (09:20)
[2017-10-03] MEDS ORDERED: ACHD5005 PO (09:20)
--- NOTE | 2017-10-03 09:22 | Discharge Inst-Simple/Standard ---
Discharge Inst-Standard Discharge Medications New, Converted or Re-Newed RX: RX on Chart Patient Instructions/Follow Up Plan of Care/Instructions/FU: 2-3 weeks Maco Activity as Tolerated: No Discharge Diet: Regular Diet Other Inst to Patient Follow up Appt: Make appointment for 2-3 week. Instructions: No lifting greater than 10 pounds. No strenuous activity. May shower in 24 hours, no tub bath or soaking. Use incentive spirometer at home as directed. No Smoking Skin/Wound Care: You have special glue over incision it will fall off on its own. Symptoms to Report: Appetite Changes, Extremity Discoloration, Numbness/Tingling, Swelling Increased , Bleeding Excessive, Eyesight Changes, Pain Increased, Urine Color Change, Constipation(Persistent), Fever over 101 degree F, Pain/Pressure in chest, Urinating Difficulty, Cough Up/Vomit Blood, Heart Beat Irreg/Pounding, Pain/ Pressure in jaw, Vaginal Bleeding Increase, Cramps in feet or legs, Lightheadedness, Pain/Pressure in shoulder, Diarrhea(Persistent), Memory Changes Suddenly, Questions/Concerns, Weight gain consecutive days, Dizziness/ Fainting, Nausea/Vomiting, Shortness of Breath, Weight gain over 2 pounds If questions or concerns contact your physician Or seek help at emergency department. DANNY BENITO DO Oct 03, 2017 09:22
[2017-10-03] MEDS ORDERED: HYDROcodone/APAP 5 MG/325 MG (LORTAB) TAB PO PRN (09:30)
[2017-10-03] MEDS ORDERED: fentaNYL INJECTION 100 MCG/2 ML AMP IVP PRN (09:45)
[2017-10-03] MEDS ORDERED: HYDROmorphone (DILAUDID) 2 MG/ML VIAL IVP PRN (09:45)
[2017-10-03] MEDS ORDERED: MEPERIDINE (DEMEROL) INJ 50 MG/ML IVP PRN (09:45)
[2017-10-03] MEDS ORDERED: ONDANSETRON 4 MG/2 ML (SDV) Z0FRAN IVP PRN (09:45)
[2017-10-03 10:25] VITALS: BP 135/97
[2017-10-03 10:55] VITALS: BP 140/99
[2017-10-03 11:25] VITALS: BP 146/102
--- NOTE | 2017-10-03 16:53 | OPERATIVE REPORT ---
DATE OF SERVICE: 10/03/2017 PREOPERATIVE DIAGNOSIS: Right inguinal hernia. POSTOPERATIVE DIAGNOSIS: Indirect right inguinal hernia. PROCEDURE: Open right inguinal hernia repair. SURGEON: Danny Dewey DO. INDUSTRIAL CHEMICALS SUPERVISOR: Dr. Albarado, assisted in retraction, dissection and closure. ANESTHESIA: General. ESTIMATED BLOOD LOSS: Minimal. COMPLICATIONS: None. INDICATIONS: The patient is a 57-year-old male with a right inguinal hernia. He understands risks and benefits of procedure and wished to proceed with procedure. Consent was signed on the chart. DESCRIPTION OF PROCEDURE: The patient was taken to the operating suite, was prepped and draped in sterile fashion. Surgical pause was performed. Local anesthetic was infiltrated into the right inguinal area. A #15 blade scalpel was used to make incision and cautery was used to taken down to the external oblique. External oblique was then opened down through the external ring. The spermatic cord was then dissected around and a Hema drain was placed around it and secured. There is no floor defect. There was an indirect inguinal hernia present. The hernia sac was then dissected off of the cord and this was then ligated with a 2-0 Vicryl. The Parietex mesh was then secured to Mariano's ligament and incorporated the mesh around the spermatic cord. Placed under the external oblique with adequate overlay. The wound was irrigated with copious amounts of irrigation. Hemostasis was achieved. The external oblique was then closed using 3-0 Vicryl in a running fashion recreating the external ring. Subcutaneous tissues were then reapproximated using 3-0 Vicryl. Skin was then closed using 4-0 Monocryl to close the skin and the Skin Affix was then placed over the incision after washed and dried. The patient tolerated the procedure well without any complications and taken to recovery room in stable condition. Job ID: [id number] DocumentID: [id number] Dictated Date: 10/03/2017 09:27:41 Roentgenology Teacher Date: 10/03/2017 16:53:11 Dictated By: DANNY DEWEY DO
== END 2017-10-03 11:35 | disposition home or self-care (01) ==
LOC: SDC 05:58
PROVIDERS: ATTEND Surgery
DX: K40.90 Unilateral inguinal hernia, without obstruction or gangrene, not specified as recurrent (principal); I10 Essential (primary) hypertension; E78.5 Hyperlipidemia, unspecified; K21.9 Gastro-esophageal reflux disease without esophagitis; Z79.82 Long term (current) use of aspirin; Z79.899 Other long term (current) drug therapy; Z87.891 Personal history of nicotine dependence
CPT/HCPCS: 87081; 94664

== ENCOUNTER → 2018-03-13 | Outpatient (CLI) | payer OTHER ==
[~2018-03-13] MED LIST changes: +ACHD5005 PO; +DOCU-143 PO
[2018-03-13 09:33] LABS: ALBUMIN 3.8 GM/DL (3.2-4.5); BILIRUBIN,TOTAL 0.8 MG/DL (0.1-1.0); CALCIUM 9.2 MG/DL (8.5-10.1); CREATININE SERUM 1.52 MG/DL (0.60-1.30); TOTAL PROTEIN 6.2 GM/DL (6.4-8.2)
== END ==
LOC: RAD 09:00
PROVIDERS: ATTEND Nurse Practitioner Family
DX: I71.9 Aortic aneurysm of unspecified site, without rupture (principal); R79.89 Other specified abnormal findings of blood chemistry; Z53.8 Procedure and treatment not carried out for other reasons
CPT/HCPCS: 36415; 80053

== ENCOUNTER → 2020-02-10 | Outpatient (CLI) | payer OTHER | LOC: CARD 08:52 | PROVIDERS: ATTEND Internal Medicine Cardiovascular Disease | DX: I08.1 Rheumatic disorders of both mitral and tricuspid valves (principal); I25.10 Atherosclerotic heart disease of native coronary artery without angina pectoris; I10 Essential (primary) hypertension; I71.2 Thoracic aortic aneurysm, without rupture; E78.5 Hyperlipidemia, unspecified | CPT/HCPCS: 93306 ==

== ENCOUNTER → 2020-08-15 | Outpatient (CLI) | payer OTHER ==
[~2020-08-15] MED LIST changes: +CLN.1T PO; -CLON0.1T PO
--- NOTE | 2020-08-15 15:56 | Diagnostic Imaging Report ---
INDICATION: Elevated parathyroid hormone. COMPARISON: None FINDINGS: AP Spine L1-L4: [BMD (g/cm2): 1.138] [T-Score: -0.9] [Z-Score: -0.3] [BMD Previous: NA] [BMD % Change: NA] LT Hip Neck: [BMD (g/cm2): 0.909] [T-Score: -1.2] [Z-Score: -0.2] LT Hip Total: [BMD (g/cm2):0.951] [T-Score:-1.0] [Z-Score: -0.4] [BMD Previous: NA] [BMD % Change: NA] RT Hip Neck: [BMD (g/cm2):0.934] [T-Score:-1.0] [Z-Score:0.0] RT Hip Total: [BMD (g/cm2):0.961] [T-score:-1.0] [Z-Score:-0.3] [BMD Previous:NA] [BMD % Change:NA] *Indicates significant change from prior examination based on 95% confidence level. World Health Organization criteria for BMD interpretation classify patients as Normal (T-score at or above -1.0), Osteopenic (T-score between -1.0 and -2.5) or Osteoporotic (T-score at or below -2.5). LIMITATIONS AND MODIFICATION: None. FRACTURE RISK (FRAX SCORE): The ten year probability of (%): Major Osteoporotic Fracture: [4.9] Hip Fracture: [0.5] IMPRESSION: 1. Normal bone mineral density. 2. Baseline examination. 3. See below National Osteoporosis Foundation guidelines on when to potentially initiate pharmacologic therapy. Based on the National Osteoporosis Foundation Guidelines, pharmacologic treatment should be initiated in any of the following, unless clinical conditions suggest otherwise: * Any patient with prior fragility fracture of the hip or vertebrae. A spine fracture indicates 5X risk for subsequent spine fracture and 2X risk for subsequent hip fracture. * Osteoporosis (T-score <-2.5). * Postmenopausal women and men age 50 and older with low bone mass/osteopenia (T-score between -1.0 and -2.5) by DXA and 10-year major osteoporotic fracture greater than 20% or a 10-year probability of hip fracture greater than 3%. These fracture risks are supplied above in the FRAX score, if applicable. * Clinician judgement and/or patient preferences may indicate treatment for people with 10-year fracture probabilities above or below these levels. Dictated by: Dictated on workstation # [id number]
== END ==
LOC: RAD 12:38
PROVIDERS: ATTEND Nurse Practitioner
DX: E34.9 Endocrine disorder, unspecified (principal)
CPT/HCPCS: 77080

== ENCOUNTER → 2020-09-08 | Outpatient (CLI) | payer OTHER ==
--- NOTE | 2020-09-08 08:40 | Diagnostic Imaging Report ---
PROCEDURE: CT chest without contrast. TECHNIQUE: Multiple contiguous axial images were obtained through the chest without the use of intravenous contrast. Auto Exposure Controls were utilized during the CT exam to meet ALARA standards for radiation dose reduction. INDICATION: Kidney cancer. FINDINGS: The previous CTA chest exam of 03/19/2017 noted aneurysmal dilatation of the ascending aorta. The aorta measures approximately 4.4 cm in maximum transverse diameter. On this exam, the aorta has increased in size and is now estimated to be 4.7 x 4.6 cm in maximum transverse and AP diameters. The root of the aorta measures 3.9 cm as opposed to 3.6 cm previously (image 27 series 602). There is no periaortic fluid collection to suggest an acute abnormality of the aorta. The heart is borderline enlarged but stable when compared to the prior exam. Coronary calcifications are again noted. There is no obvious mediastinal or hilar adenopathy. The thyroid gland is generally unremarkable. There are mild emphysematous changes involving both lungs. There is no evidence for failure, pneumonia or for pleural effusion. The small 3 mm nodule along the periphery of left lung base seen previously is again evident and no different (image 80 series 2). The sections through the upper abdomen failed to show any sign of an acute abnormality. The bone windows are unremarkable for fracture or for destructive lesion. IMPRESSION: 1. The aneurysm of the ascending aorta seen previously has increased in size slightly. The aneurysm is now estimated to be 4.7 x 4.6 cm. The root of the aorta is also somewhat more dilated than noted previously and this measures 3.9 cm as opposed to 3.6 cm previously. 2. There is no acute cardiopulmonary abnormality identified. 3. There is coronary artery disease. Dictated by: Dictated on workstation # [id number]
== END ==
LOC: RAD 07:45
PROVIDERS: ATTEND Nurse Practitioner
DX: C64.9 Malignant neoplasm of unspecified kidney, except renal pelvis (principal); I71.2 Thoracic aortic aneurysm, without rupture; I25.10 Atherosclerotic heart disease of native coronary artery without angina pectoris
CPT/HCPCS: 71250

== ENCOUNTER → 2020-11-14 | Outpatient (CLI) | payer OTHER ==
[2020-11-14 12:24] LABS: ALBUMIN 3.6 GM/DL (3.2-4.5); POTASSIUM 3.7 MMOL/L (3.6-5.0)
[2020-11-14 12:25] LABS: CALCIUM 9.1 MG/DL (8.5-10.1)
[2020-11-14 12:27] LABS: TOTAL PROTEIN 6.2 GM/DL (6.4-8.2)
[2020-11-14 12:29] LABS: BILIRUBIN,TOTAL 0.5 MG/DL (0.1-1.0)
[2020-11-14 12:30] LABS: CREATININE SERUM 1.36 MG/DL (0.60-1.30)
== END ==
LOC: LAB 11:39
PROVIDERS: ATTEND Internal Medicine Cardiovascular Disease
DX: E78.2 Mixed hyperlipidemia (principal)
CPT/HCPCS: 36415; 80053; 80061

== ENCOUNTER → 2020-11-15 | Outpatient (CLI) | payer OTHER ==
[~2020-11-15] VITALS: Ht 182 cm; Wt 73.0 kg
[~2020-11-15] MED LIST changes: +CATHETER FLUSH 10 ML SYR IV PRN; +REGADENOSON 0.4 MG/5 ML SYR (LEXISCAN) IV ONE
[2020-11-15 09:08] VITALS: BP 141/102
--- NOTE | 2020-11-15 13:27 | Cardiology Stress Test Report ---
Stress Test Report Date of Procedure/Referring: Date of Procedure: Nov 15, 2020 PCP Anjelica Bruce MD Admitting Physician Center/[facility] Indications: Chest pain Baseline Blood Pressure: Blood Pressure Systolic: 141 Blood Pressure Diastolic: 102 Baseline Vitals Vital Signs Date Time Temp Pulse Resp B/P (MAP) Pulse Ox O2 Delivery O2 Flow Rate FiO2 11/15/20 09:08 47 18 141/102 (115) 98 Room Air Baseline EKG: Baseline EKG: NSR Summary After explaining the procedure to the patient, he signed a consent and then brought to the stress nuclear laboratory. Patient received 0.4 mg Lexiscan for stress test, ECG, heart rate and blood pressure were monitored continuously. Resting and stress dose of radio tracer were injected, imaging was acquired and reviewed in short axis, horizontal long axis and vertical long axis views. TID: 1.09 SSS: 0 SDS: 0 EF: 60 1. Patient tolerated Lexiscan well 2. Diaphragmatic attenuation with no significant ischemia or infarction on SPECT images 3. Normal left ventricular size, EF 60% ANJELICA BRUCE MD Nov 15, 2020 13:27
== END ==
LOC: CARD 07:06
PROVIDERS: ATTEND Internal Medicine Cardiovascular Disease
DX: R07.9 Chest pain, unspecified (principal)
CPT/HCPCS: 78452; 93017; A9502

== ENCOUNTER → 2020-11-29 | Outpatient (CLI) | payer OTHER ==
[~2020-11-29] MED LIST changes: -CATHETER FLUSH 10 ML SYR IV PRN; -REGADENOSON 0.4 MG/5 ML SYR (LEXISCAN) IV ONE
--- NOTE | 2020-11-29 16:57 | Diagnostic Imaging Report ---
EXAMINATION: CT chest without contrast. TECHNIQUE: Multiple contiguous axial images were obtained through the chest without the use of intravenous contrast. All CT scans use one or more of the following dose optimizing techniques: automated exposure control, MA and/or KvP adjustment based on patient size and exam type or iterative reconstruction. HISTORY: Ascending aortic aneurysm. COMPARISON: 09/08/2020 FINDINGS: There is no edema or pneumonia. No pleural effusion. No pneumothorax. No suspicious nodules. There is no axillary or supraclavicular lymphadenopathy. There is no mediastinal lymphadenopathy. Heart size is normal. There are mild coronary artery calcifications. No pericardial effusion. Aortic root measures 4.0 cm, previously 4.1 cm.Ascending aorta measures 4.7 cm, previously 4.8 cm. Limited views of the upper abdomen show the right kidney to be absent. There are no suspicious osseous lesions. IMPRESSION: 1. Stable ascending aortic aneurysm measuring up to 4.7 cm. Dictated by: Dictated on workstation # [id number]
== END ==
LOC: RAD 11:15
PROVIDERS: ATTEND Internal Medicine Cardiovascular Disease
DX: I71.2 Thoracic aortic aneurysm, without rupture (principal)
CPT/HCPCS: 71250

== ENCOUNTER 2022-06-03 14:53 | Emergency (ER) | payer BC ==
[~2022-06-03] VITALS: Ht 182.8 cm; Wt 72.5 kg
[~2022-06-03 14:53] MED LIST changes: -AMLO1TAB58 PO; +OMEP20TA56 PO; -OMEP20TA7 PO; +[UNRECOGNIZED DRUG - CODE] PO
--- NOTE | 2022-06-03 15:14 | ED General ---
General Stated Complaint: CONGESTION | SINUS | History of Present Illness Date Seen by Provider: Jun 03, 2022 Time Seen by Provider: 16:08 Initial Comments 62-year-old male with PMH of aortic aneurysm, is here with complaints of chest discomfort which appears to be lower retrosternal, radiating to the back which began today morning and is associated with mild intermittent dizziness. Patient has yearly scans for his aneurysm, and patient states that his last CT was 1 year ago and measured at 4.6 cm. Patient is concerned that he is having issues with his aneurysm and that is why he has come to the ER. Denies fever, nausea and vomiting, diarrhea, palpitations, shortness of breath, headache, falls. Allergies and Home Medications Allergies Coded Allergies: No Known Drug Allergies (Unverified , 02/24/17) Patient Home Medication List Home Medication List Reviewed: Yes Amlodipine Bes/Olmesartan Med ([place] 10-40 mg Tablet) 1 Each Tablet, 1 EACH PO DAILY, (Reported) Entered as Reported by: KEVIN FONTAINE on 02/25/17 1021 Aspirin (Aspir 81) 81 Mg Tablet.dr, 81 MG PO DAILY, (Reported) Entered as Reported by: KEVIN FONTAINE on 02/25/17 1021 Atorvastatin Calcium (Atorvastatin Calcium) 40 Mg Tablet, 40 MG PO DAILY, (Reported) Entered as Reported by: KEVIN FONTAINE on 02/25/17 1021 Carvedilol (Carvedilol) 12.5 Mg Tablet, 12.5 MG PO BID, (Reported) Entered as Reported by: KEVIN FONTAINE on 02/25/17 1021 Clonidine HCl (Clonidine HCl) 0.1 Mg Tablet, 0.1 MG PO DAILY, (Reported) Entered as Reported by: KEVIN FONTAINE on 02/25/17 1021 Docusate Sodium (Colace) 100 Mg Capsule, 100 MG PO DAILY Prescribed by: DANNY BENITO on 10/03/17 0920 Hydrocodone Bit/Acetaminophen (Lortab 5 Mg Tablet) 1 Tab Tab, 1 TAB PO Q4H PRN Prescribed by: DANNY BENITO on 10/03/17 0920 Omeprazole (Omeprazole) 20 Mg Tablet., 20 MG PO DAILY, (Reported) Entered as Reported by: KEVIN FONTAINE on 02/25/17 1021 Review of Systems Review of Systems Constitutional: no symptoms reported EENTM: no symptoms reported Respiratory: no symptoms reported Cardiovascular: chest pain (Pressure) Gastrointestinal: no symptoms reported Genitourinary: no symptoms reported Musculoskeletal: no symptoms reported Skin: no symptoms reported Psychiatric/Neurological: No Symptoms Reported Hematologic/Lymphatic: No Symptoms Reported Immunological/Allergic: no symptoms reported Past Itxlwlt-Jrrldj-Qytavq Hx Immunizations Up To Date Tetanus Booster (TDap): Unknown PED Vaccines UTD: No Seasonal Allergies Seasonal Allergies: No Past Medical History Currently Using CPAP: No Hypertension Arthritis Kidney What Type of Treatment Did You: Surgical Intervention Physical Exam Vital Signs Vital Signs - First Documented 06/03/22 15:03 Temp 36.4 Pulse 54 Resp 18 B/P (MAP) 107/79 (88) Pulse Ox 100 O2 Delivery Room Air Capillary Refill : Height, Weight, BMI Height: 6'0.00" Weight: 173lbs. 0.0oz. [id number]; 22.03 BMI Method: General Appearance: No Apparent Distress, WD/WN HEENT: PERRL/EOMI Neck: Full Range of Motion, Normal Inspection, Non Tender, Supple Respiratory: Chest Non Tender, Lungs Clear, Normal Breath Sounds, No Accessory Muscle Use, No Respiratory Distress Cardiovascular: Regular Rate, Rhythm, No Edema, No Murmur Gastrointestinal: Normal Bowel Sounds, Non Tender, Soft Back: No CVA Tenderness Extremity: Normal Range of Motion Neurologic/Psychiatric: Alert, Oriented x3, No Motor/Sensory Deficits, Normal Mood/Affect Skin: Normal Color Focused Exam Lactate Level 06/03/22 15:23: Lactic Acid Level 1.52 Lactic Acid Level Laboratory Tests Test 06/03/22 15:23 Lactic Acid Level 1.52 MMOL/L (0.50-2.00) Progress/Results/Core Measures Suspected Sepsis SIRS Temperature: Pulse: Respiratory Rate: Laboratory Tests 06/03/22 15:12: White Blood Count 6.4 Blood Pressure / Mean: 06/03/22 15:23: Lactic Acid Level 1.52 Laboratory Tests 06/03/22 15:12: Creatinine 2.18H, INR Comment 1.0, Platelet Count 149, Total Bilirubin 0.6 Results/Orders Lab Results Laboratory Tests Test 06/03/22 15:12 06/03/22 15:23 Range/Units White Blood Count 6.4 4.3-11.0 10^3/uL Red Blood Count 4.22 L 4.30-5.52 10^6/uL Hemoglobin 11.8 L 13.3-17.7 g/dL Hematocrit 36 L 40-54 % Mean Corpuscular Volume 84 80-99 fL Mean Corpuscular Hemoglobin 28 25-34 pg Mean Corpuscular Hemoglobin Concent 33 32-36 g/dL Red Cell Distribution Width 13.2 10.0-14.5 % Platelet Count 149 130-400 10^3/uL Mean Platelet Volume 9.5 9.0-12.2 fL Immature Granulocyte % (Auto) 0 % Neutrophils (%) (Auto) 76 H 42-75 % Lymphocytes (%) (Auto) 14 12-44 % Monocytes (%) (Auto) 9 0-12 % Eosinophils (%) (Auto) 1 0-10 % Basophils (%) (Auto) 1 0-10 % Neutrophils # (Auto) 4.8 1.8-7.8 10^3/uL Lymphocytes # (Auto) 0.9 L 1.0-4.0 10^3/uL Monocytes # (Auto) 0.6 0.0-1.0 10^3/uL Eosinophils # (Auto) 0.0 0.0-0.3 10^3/uL Basophils # (Auto) 0.0 0.0-0.1 10^3/uL Immature Granulocyte # (Auto) 0.0 0.0-0.1 10^3/uL Prothrombin Time 13.6 12.2-14.7 SEC INR Comment 1.0 0.8-1.4 Activated Partial Thromboplast Time 27 24-35 SEC D-Dimer 0.38 0.00-0.49 UG/ML Sodium Level 134 L 135-145 MMOL/L Potassium Level 3.7 3.6-5.0 MMOL/L Chloride Level 100 98-107 MMOL/L Carbon Dioxide Level 24 21-32 MMOL/L Anion Gap 10 5-14 MMOL/L Blood Urea Nitrogen 29 H 7-18 MG/DL Creatinine 2.18 H 0.60-1.30 MG/DL Estimat Glomerular Filtration Rate 34 BUN/Creatinine Ratio 13 Glucose Level 148 H 70-105 MG/DL Calcium Level 9.5 8.5-10.1 MG/DL Corrected Calcium 9.6 8.5-10.1 MG/DL Total Bilirubin 0.6 0.1-1.0 MG/DL Aspartate Amino Transf (AST/SGOT) 17 5-34 U/L Alanine Aminotransferase (ALT/SGPT) 15 0-55 U/L Alkaline Phosphatase 71 40-136 U/L Troponin I < 0.028 <0.028 NG/ML B-Type Natriuretic Peptide 50.0 <100.0 PG/ML Total Protein 7.1 6.4-8.2 GM/DL Albumin 3.9 3.2-4.5 GM/DL Urine Color YELLOW Urine Clarity CLEAR Urine pH 5.5 5-9 Urine Specific [place] 1.020 1.016-1.022 Urine Protein TRACE H NEGATIVE Urine Glucose (UA) NEGATIVE NEGATIVE Urine Ketones TRACE H NEGATIVE Urine Nitrite NEGATIVE NEGATIVE Urine Bilirubin NEGATIVE NEGATIVE Urine Urobilinogen 0.2 < = 1.0 MG/DL Urine Leukocyte Esterase TRACE H NEGATIVE Urine RBC (Auto) 1+ H NEGATIVE Urine RBC 0-2 /HPF Urine WBC 0-2 /HPF Urine Squamous Epithelial Cells 0-2 /HPF Urine Renal Epithelial Cells NONE /HPF Urine Crystals NONE /LPF Urine Bacteria FEW H /HPF Urine Casts PRESENT /LPF Urine Hyaline Casts 2-5 H /LPF Urine Mucus SMALL H /LPF Urine Culture Indicated YES Lactic Acid Level 1.52 0.50-2.00 MMOL/L Urine Opiates Screen NEGATIVE NEGATIVE Urine Oxycodone Screen NEGATIVE NEGATIVE Urine Methadone Screen NEGATIVE NEGATIVE Urine Propoxyphene Screen NEGATIVE NEGATIVE Urine Barbiturates Screen NEGATIVE NEGATIVE Ur Tricyclic Antidepressants Screen NEGATIVE NEGATIVE Urine Phencyclidine Screen NEGATIVE NEGATIVE Urine Amphetamines Screen NEGATIVE NEGATIVE Urine Methamphetamines Screen NEGATIVE NEGATIVE Urine Benzodiazepines Screen NEGATIVE NEGATIVE Urine Cocaine Screen NEGATIVE NEGATIVE Urine Cannabinoids Screen NEGATIVE NEGATIVE Influenza Type A (RT-PCR) Not Detected Not Detecte Influenza Type B (RT-PCR) Not Detected Not Detecte SARS-CoV-2 RNA (RT-PCR) Not Detected Not Detecte My Orders Orders - KELLY GAO MD Ekg Tracing (06/03/22 15:11) Covid 19 Inhouse Test (06/03/22 15:15) Influenza A And B By Pcr (06/03/22 15:15) Bnp Julissa (06/03/22 15:15) Cbc With Automated Diff (06/03/22 15:15) Comprehensive Metabolic Panel (06/03/22 15:15) Fibrin Degradation Products (06/03/22 15:15) Drug Screen Stat (Urine) (06/03/22 15:15) Lactic Acid Analyzer (06/03/22 15:15) Ua Culture If Indicated (06/03/22 15:15) Troponin I Julissa (06/03/22 15:15) Protime With Inr (06/03/22 15:15) Partial Thromboplastin Time (06/03/22 15:15) Ed Iv/Invasive Line Start (06/03/22 15:17) Ct Angio Chest/Abd W(R/O Ad) (06/03/22 15:17) Ed Iv/Invasive Line Start (06/03/22 15:18) Ns Iv 1000 Ml (Sodium Chloride 0.9%) (06/03/22 15:18) Urine Culture (06/03/22 15:23) Ns Iv 1000 Ml (Sodium Chloride 0.9%) (06/03/22 16:00) Iohexol Injection (Omnipaque 350 Mg/Ml 1 (06/03/22 16:15) Received Contrast (Hold Metformin- Contr (06/03/22 16:15) Sodium Chloride Flush (Catheter Flush Sy (06/03/22 16:15) Ns (Ivpb) (Sodium Chloride 0.9% Ivpb Bag (06/03/22 16:15) Medications Given in ED Current Medications Medications Dose Ordered Sig/Tania Route Start Time Stop Time Status Last Admin Dose Admin Iohexol 63 ml ONCE ONCE IV 06/03/22 16:15 06/03/22 16:16 DC 06/03/22 16:11 63 ML Sodium Chloride 10 ml NEEDED PRN IV 06/03/22 16:15 06/03/22 16:11 10 ML Sodium Chloride 100 ml ONCE ONCE IV 06/03/22 16:15 06/03/22 16:16 DC 06/03/22 16:11 80 ML Vital Signs/I&O 06/03/22 15:03 Temp 36.4 Pulse 54 Resp 18 B/P (MAP) 107/79 (88) Pulse Ox 100 O2 Delivery Room Air Capillary Refill : Progress Note : Progress Note 1. CHEST PRESSURE: R/O AORTIC DISSECTION: - CTA CHEST & ABD: Ascending aorta aneurysm measures 4.4 x 4.6 cm without any change since November 2020. Descending aorta measures 3.0 cm -Creatinine is elevated at 2.18 with a GFR of 34, gave patient a bolus of fluids and also continued 200/h while in the ER, due to urgency of ruling out dissection based on patient's history, symptoms, clinical exam, and hypotension in the ER -Troponin/EKG: Nonischemic - COVID test/ Rapid Flu Test negative -Advised to follow-up with cardiology in the next 7 days -The patient was seen in the ED, and treated appropriately to presentation at a specific point in time. Patient is informed that there is a possibility that disease and illness can evolve and change in acuity rapidly or slowly after patient is discharged from the ER. Precautionary advice given to the patient for immediate return to ER if symptoms worsen or do not resolve, and to seek emergency care sooner rather than later. Pt also advised on the importance of PCP follow up and compliance with management and follow up plan with PCP and/or specialist, as this is part of the management plan. Pt verbally expressed understanding. 2. ACUTE CYSTITIS WITH HEMATURIA: -UA is positive for leukocyte esterase, RBC, and bacteria -Nitrofurantoin 100 mg twice daily for 7 days prescribed -Adequate water intake advised -Follow-up with PCP within the next 3 to 7 days Diagnostic Imaging Diagonstic Imaging: CT Plain Films/CT/US/NM/MRI: chest, abdomen Comments [facility], [place] NAME: ERNESTINEBERNA Jaramillo JELANI REC#: [id number] PT STATUS: REG ER : 1960 PHYSICIAN: KELLY GAO MD ADMIT DATE: 06/03/22/ER Draft Date of Exam:06/03/22 CT ANGIO CHEST/ABD W(R/O AD) PROCEDURE: CT angiography of the abdomen and chest with and without contrast. TECHNIQUE: After intravenous administration of contrast, thin section axial CT angiography of the abdomen and chest were obtained. 3D MIP reformats were provided. Auto Exposure Controls were utilized during the CT exam to meet ALARA standards for radiation dose reduction. DATE: June 03, 2022. INDICATION: 62-year-old male, chest pain, shortness of breath, back pain. COMPARISON: CT chest November 29, 2020. CT chest, abdomen, and pelvis March 19, 2017. FINDINGS: There is a 3 mm calcified left lower lobe granuloma on axial image 70. There is very mild pleural parenchymal scarring in the left lung apex. There is no identified noncalcified pulmonary nodule or lung mass. There is no otherwise noted focal airspace consolidation. There is no pneumothorax. There is no pleural effusion. The central airways are patent. There is nondiagnostic evaluation for pulmonary emboli given the timing of the contrast bolus. There is no evidence of an acute aortic injury or aortic dissection. The superior mesenteric artery and celiac axis are patent. The bilateral renal arteries are widely patent. There is note of mild atherosclerotic disease. The inferior mesenteric artery is patent. The abdominal aorta is normal in caliber. The mid ascending thoracic aorta measures up to 4.4 x 4.6 cm in diameter. The descending thoracic aorta measures up to 3.0 cm in diameter. The aortic diameters are unchanged since November 29, 2020. The heart is not enlarged. There is no pericardial effusion. There is no identified mediastinal, hilar, or axillary lymph node meeting CT size criteria for adenopathy. The right kidney is absent. The left kidney is unremarkable in appearance. Additional evaluation of the abdomen is grossly unremarkable. There are multilevel degenerative changes of the spine. There is no identified acute bony abnormality. IMPRESSION: 1. Ascending thoracic aortic aneurysm measuring 4.4 x 4.6 cm in diameter without interval change since November 29, 2020. 2. No evidence of aortic dissection or other acute abnormality at the level of the chest or abdomen. Dictated on workstation # [id number] Dict: 06/03/22 1615 Trans: 06/03/22 1627 [id number] Interpreted by: SINCERE MARQUEZ MD Electronically signed by: Departure Impression Primary Impression: Acute cystitis with hematuria Additional Impression: Aortic aneurysm without rupture Qualified Codes: I71.21 - Aneurysm of the ascending aorta, without rupture Disposition: 01 HOME, SELF-CARE Condition: Stable Departure-Patient Inst. Referrals: [facility] (PCP) Primary Care Physician BHAVESH NEWMAN APRN (Family) Primary Care Physician Patient Instructions: Aortic Aneurysm (DC), Acute Cystitis (DC) Add. Discharge Instructions: -Nitrofurantoin 100 mg twice daily for 7 days prescribed -Adequate water intake advised -Follow-up with PCP within the next 3 to 7 days -Advised to follow-up with cardiology for stress testing in the next 3 to 7 days -Return to ER if symptoms do not improve or continue to worsen Scripts Nitrofurantoin Macrocrystal (Nitrofurantoin) 100 Mg Capsule 100 MG PO BID for 7 Days, #14 CAP Prov: KELLY GAO MD 06/03/22 KELLY GAO MD Jun 03, 2022 15:14
[2022-06-03] MEDS ORDERED: NS IV 1000 ML 1,000 ML IV STA (15:18)
[2022-06-03 15:23] LABS: BASOPHILS % (AUTO) 1 % (0-10); EOSINOPHILS % (AUTO) 1 % (0-10); HEMATOCRIT 36 % (40-54); HEMOGLOBIN 11.8 g/dL (13.3-17.7); LYMPHOCYTES # (AUTO) 0.9 10^3/uL (1.0-4.0); LYMPHOCYTES % (AUTO) 14 % (12-44); MEAN CORPUSCULAR HEMOGLOBIN 28 pg (25-34); MEAN CORPUSCULAR HGB CONC 33 g/dL (32-36); MEAN CORPUSCULAR VOLUME 84 fL (80-99); MEAN PLATELET VOLUME 9.5 fL (9.0-12.2); MONOCYTES # (AUTO) 0.6 10^3/uL (0.0-1.0); MONOCYTES % (AUTO) 9 % (0-12); NEUTROPHILS # (AUTO) 4.8 10^3/uL (1.8-7.8); NEUTROPHILS % (AUTO) 76 % (42-75); PLATELET COUNT 149 10^3/uL (130-400); WHITE BLOOD COUNT 6.4 10^3/uL (4.3-11.0)
[2022-06-03 15:35] LABS: BILIRUBIN,URINE NEGATIVE (NEGATIVE); CLARITY,URINE CLEAR; COLOR,URINE YELLOW; GLUCOSE, URINE (UA) NEGATIVE (NEGATIVE); KETONES,URINE TRACE (NEGATIVE); LEUKOCYTE ESTERASE ,URINE TRACE (NEGATIVE); NITRITE,URINE NEGATIVE (NEGATIVE); PH,URINE 5.5 (5-9); PROTEIN,URINE TRACE (NEGATIVE)
[2022-06-03 15:43] LABS: BACTERIA,URINE FEW /HPF; RBC,URINE 0-2 /HPF; SQUAMOUS EPITHELIAL CELL,UR 0-2 /HPF; WBC,URINE 0-2 /HPF
[2022-06-03 15:45] LABS: FIBRIN DEGRADATION PRODUCTS 0.38 UG/ML (0.00-0.49); PROTHROMBIN TIME PATIENT 13.6 SEC (12.2-14.7)
[2022-06-03 15:48] LABS: AMPHETAMINE SCREEN, URINE NEGATIVE (NEGATIVE); BARBITURATE SCREEN URINE NEGATIVE (NEGATIVE); BENZODIAZEPINES SCREEN URINE NEGATIVE (NEGATIVE); CANNABINOID SCREEN, URINE NEGATIVE (NEGATIVE); COCAINE SCREEN URINE NEGATIVE (NEGATIVE); METHADONE STAT NEGATIVE (NEGATIVE); OPIATE SCREEN URINE NEGATIVE (NEGATIVE); OXYCODONE STAT NEGATIVE (NEGATIVE); PROPOXYPHENE STAT NEGATIVE (NEGATIVE); TRICYCLIC ANTIDEPRESSANTS SCRE NEGATIVE (NEGATIVE)
[2022-06-03 15:53] LABS: ALANINE AMINOTRANSFERASE 15 U/L (0-55); ALBUMIN 3.9 GM/DL (3.2-4.5); ALKALINE PHOSPHATASE 71 U/L (40-136); BILIRUBIN,TOTAL 0.6 MG/DL (0.1-1.0); BUN/CREATININE RATIO 13; CALCIUM 9.5 MG/DL (8.5-10.1); CARBON DIOXIDE 24 MMOL/L (21-32); CHLORIDE 100 MMOL/L (98-107); CREATININE SERUM 2.18 MG/DL (0.60-1.30); GFR ESTIMATED 34; GLUCOSE 148 MG/DL (70-105); POTASSIUM 3.7 MMOL/L (3.6-5.0); SODIUM 134 MMOL/L (135-145); TOTAL PROTEIN 7.1 GM/DL (6.4-8.2)
[2022-06-03] MEDS ORDERED: NS IV 1000 ML 1,000 ML IV SCH (16:00)
[2022-06-03] MEDS ORDERED: IOHEXOL 350 MG/ML 100 ML (OMNIPAQUE 350) VIAL IV ONE (16:15)
[2022-06-03] MEDS ORDERED: HOLD METFORMIN - RECEIVED CONTRAST 20 ML VIAL IV SCH (16:15)
[2022-06-03] MEDS ORDERED: NS 100 ML (IVPB) BAG IV ONE (16:15)
[2022-06-03] MEDS ORDERED: CATHETER FLUSH 10 ML SYR IV PRN (16:15)
--- NOTE | 2022-06-03 16:28 | Diagnostic Imaging Report ---
PROCEDURE: CT angiography of the abdomen and chest with and without contrast. TECHNIQUE: After intravenous administration of contrast, thin section axial CT angiography of the abdomen and chest were obtained. 3D MIP reformats were provided. Auto Exposure Controls were utilized during the CT exam to meet ALARA standards for radiation dose reduction. DATE: June 03, 2022. INDICATION: 62-year-old male, chest pain, shortness of breath, back pain. COMPARISON: CT chest November 29, 2020. CT chest, abdomen, and pelvis March 19, 2017. FINDINGS: There is a 3 mm calcified left lower lobe granuloma on axial image 70. There is very mild pleural parenchymal scarring in the left lung apex. There is no identified noncalcified pulmonary nodule or lung mass. There is no otherwise noted focal airspace consolidation. There is no pneumothorax. There is no pleural effusion. The central airways are patent. There is nondiagnostic evaluation for pulmonary emboli given the timing of the contrast bolus. There is no evidence of an acute aortic injury or aortic dissection. The superior mesenteric artery and celiac axis are patent. The bilateral renal arteries are widely patent. There is note of mild atherosclerotic disease. The inferior mesenteric artery is patent. The abdominal aorta is normal in caliber. The mid ascending thoracic aorta measures up to 4.4 x 4.6 cm in diameter. The descending thoracic aorta measures up to 3.0 cm in diameter. The aortic diameters are unchanged since November 29, 2020. The heart is not enlarged. There is no pericardial effusion. There is no identified mediastinal, hilar, or axillary lymph node meeting CT size criteria for adenopathy. The right kidney is absent. The left kidney is unremarkable in appearance. Additional evaluation of the abdomen is grossly unremarkable. There are multilevel degenerative changes of the spine. There is no identified acute bony abnormality. IMPRESSION: 1. Ascending thoracic aortic aneurysm measuring 4.4 x 4.6 cm in diameter without interval change since November 29, 2020. 2. No evidence of aortic dissection or other acute abnormality at the level of the chest or abdomen. Dictated by: Dictated on workstation # [id number]
[2022-06-03] MEDS ORDERED: NITR100C PO (17:09)
[2022-06-03 17:46] VITALS: BP 124/90
== END 2022-06-03 17:48 | disposition home or self-care (01) ==
LOC: EDUNIT# 14:53 → ER 14:57
DX: I71.21 Aneurysm of the ascending aorta, without rupture (principal); N30.01 Acute cystitis with hematuria; Z20.822 Contact with and (suspected) exposure to COVID-19; Z28.310 Unvaccinated for COVID-19
CPT/HCPCS: 36415; 71275; 74175; 80053; 80306; 81000; 83605; 83880; 84484; 85025; 85379; 85610; 85730; 87088; 87636; 93005

== ENCOUNTER 2022-09-30 12:07 | Emergency (ER) | payer BC ==
[~2022-09-30] VITALS: Ht 182.8 cm; Wt 74.8 kg
[~2022-09-30 12:07] MED LIST changes: +NITR100C PO
--- NOTE | 2022-09-30 12:30 | ED Chest Pain ---
General Stated Complaint: CHEST PAINS BACK PAIN Source: patient Exam Limitations: no limitations History of Present Illness Date Seen by Provider: Sep 30, 2022 Time Seen by Provider: 10:16 Initial Comments Patient is a 62-year-old male with a history of known thoracic aortic aneurysm who presents to the emergency room with a chief complaint of back pain between the shoulder blades. Patient states that it started at 730 while he was at work this morning. He states it progressed throughout the morning to where he started feeling tingling in both arms and both legs, shortness of breath and felt like he might pass out. Patient states that he has intermittent back pain that he believes is related to the aneurysm. Once or twice a month. He was last seen he states in the emergency room about 2 months ago had an echocardiogram and the aneurysm measured 4.6 cm. He has not seen Dr. Bruce since January of last year. He does not have a scheduled follow-up appointment. He takes baby aspirin daily. He currently rates the pain at a "7". He has not been referred to cardiothoracic surgery as of yet. No current nausea. No recent illnesses. He states nothing makes the pain any better or any worse. The pain is not radiating into his neck or into his shoulders. Patient states he took an extra carvedilol this morning after onset of pain All other review of systems reviewed and negative except as stated. 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) NTG SL MANUFACTURING SCHEDULER: No Associated Symptoms: syncope (feeling light headed) Allergies and Home Medications Allergies Coded Allergies: No Known Drug Allergies (Unverified , 02/24/17) Patient Home Medication List Home Medication List Reviewed: Yes Amlodipine Bes/Olmesartan Med ([place] 10-40 mg Tablet) 1 Each Tablet, 1 EACH PO DAILY, (Reported) Entered as Reported by: KEVIN FONTAINE on 02/25/17 1021 Aspirin (Aspir 81) 81 Mg Tablet.dr, 81 MG PO DAILY, (Reported) Entered as Reported by: KEVIN FONTAINE on 02/25/17 1021 Atorvastatin Calcium (Atorvastatin Calcium) 40 Mg Tablet, 40 MG PO DAILY, (Reported) Entered as Reported by: KEVIN FONTAINE on 02/25/17 1021 Carvedilol (Carvedilol) 12.5 Mg Tablet, 12.5 MG PO BID, (Reported) Entered as Reported by: KEVIN FONTAINE on 02/25/17 1021 Clonidine HCl (Clonidine HCl) 0.1 Mg Tablet, 0.1 MG PO DAILY, (Reported) Entered as Reported by: KEVIN FONTAINE on 02/25/17 1021 Docusate Sodium (Colace) 100 Mg Capsule, 100 MG PO DAILY Prescribed by: DANNY BENITO on 10/03/17 0920 Hydrocodone Bit/Acetaminophen (Lortab 5 Mg Tablet) 1 Tab Tab, 1 TAB PO Q4H PRN Prescribed by: DANNY BENITO on 10/03/17 0920 Nitrofurantoin Macrocrystal (Nitrofurantoin) 100 Mg Capsule, 100 MG PO BID Prescribed by: KELLY GAO MD on 06/03/22 1709 Omeprazole (Omeprazole) 20 Mg Tablet.dr, 20 MG PO DAILY, (Reported) Entered as Reported by: KEVIN FONTAINE on 02/25/17 1021 Review of Systems Review of Systems Constitutional: see HPI EENTM: No Symptoms Reported Respiratory: Shortness of Air Cardiovascular: Chest Pain Gastrointestinal: No Symptoms Reported Genitourinary: No Symptoms Reported Musculoskeletal: back pain Skin: no symptoms reported All Other Systems Reviewed Negative Unless Noted: Yes Past Isuusft-Dvprqd-Wwaxby Hx Immunizations Up To Date Tetanus Booster (TDap): Unknown PED Vaccines UTD: No Seasonal Allergies Seasonal Allergies: No Past Medical History Surgery/Hospitalization HX: KIDNEY CANCER, AORTIC ANEURYSM Currently Using CPAP: No Hypertension Arthritis Kidney What Type of Treatment Did You: Surgical Intervention Physical Exam Vital Signs Vital Signs - First Documented 09/30/22 12:15 Pulse 48 Resp 15 B/P (MAP) 92/73 (79) Pulse Ox 98 O2 Delivery Room Air Capillary Refill : Height, Weight, BMI Height: 6'0.00" Weight: 173lbs. 0.0oz. 78.908340dl; 21.00 BMI Method: General Appearance: No Apparent Distress, Thin HEENT: PERRL/EOMI Neck: Normal Inspection Respiratory: Lungs Clear, Normal Breath Sounds, No Accessory Muscle Use, No Respiratory Distress Cardiovascular: Regular Rate, Rhythm, Bradycardia (40's- 50), Other (bilateral BP's equal in the upper 90's systolic) Gastrointestinal: Non Tender, Soft Extremity: Normal Inspection, Normal Range of Motion, Non Tender, No Calf Tenderness, No Pedal Edema Neurologic/Psychiatric: Alert, Oriented x3, No Motor/Sensory Deficits, Normal Mood/Affect, continuous improvement intern II-XII Norm as Tested Skin: Normal Color, Warm/Dry Progress/Results/Core Measures Results/Orders Lab Results Laboratory Tests Test 09/30/22 12:22 09/30/22 14:45 Range/Units White Blood Count 6.6 4.3-11.0 10^3/uL Red Blood Count 4.02 L 4.30-5.52 10^6/uL Hemoglobin 11.1 L 13.3-17.7 g/dL Hematocrit 34 L 40-54 % Mean Corpuscular Volume 84 80-99 fL Mean Corpuscular Hemoglobin 28 25-34 pg Mean Corpuscular Hemoglobin Concent 33 32-36 g/dL Red Cell Distribution Width 12.9 10.0-14.5 % Platelet Count 217 130-400 10^3/uL Mean Platelet Volume 9.4 9.0-12.2 fL Immature Granulocyte % (Auto) 0 % Neutrophils (%) (Auto) 70 42-75 % Lymphocytes (%) (Auto) 20 12-44 % Monocytes (%) (Auto) 7 0-12 % Eosinophils (%) (Auto) 2 0-10 % Basophils (%) (Auto) 1 0-10 % Neutrophils # (Auto) 4.6 1.8-7.8 10^3/uL Lymphocytes # (Auto) 1.3 1.0-4.0 10^3/uL Monocytes # (Auto) 0.5 0.0-1.0 10^3/uL Eosinophils # (Auto) 0.1 0.0-0.3 10^3/uL Basophils # (Auto) 0.0 0.0-0.1 10^3/uL Immature Granulocyte # (Auto) 0.0 0.0-0.1 10^3/uL Prothrombin Time 14.3 12.2-14.7 SEC INR Comment 1.1 0.8-1.4 Activated Partial Thromboplast Time 28 24-35 SEC Sodium Level 137 135-145 MMOL/L Potassium Level 3.5 L 3.6-5.0 MMOL/L Chloride Level 106 98-107 MMOL/L Carbon Dioxide Level 21 21-32 MMOL/L Anion Gap 10 5-14 MMOL/L Blood Urea Nitrogen 22 H 7-18 MG/DL Creatinine 2.09 H 0.60-1.30 MG/DL Estimat Glomerular Filtration Rate 35 BUN/Creatinine Ratio 11 Glucose Level 143 H 70-105 MG/DL Calcium Level 9.0 8.5-10.1 MG/DL Corrected Calcium 9.2 8.5-10.1 MG/DL Magnesium Level 2.1 1.6-2.4 MG/DL Total Bilirubin 0.6 0.1-1.0 MG/DL Aspartate Amino Transf (AST/SGOT) 18 5-34 U/L Alanine Aminotransferase (ALT/SGPT) 19 0-55 U/L Alkaline Phosphatase 71 40-136 U/L Myoglobin 204.9 H 10.0-92.0 NG/ML Troponin I < 0.028 < 0.028 <0.028 NG/ML Total Protein 6.8 6.4-8.2 GM/DL Albumin 3.8 3.2-4.5 GM/DL My Orders Orders - LAUREN ISAAC MD Cbc With Automated Diff (09/30/22 12:33) Magnesium (09/30/22 12:33) Chest 1 View, Ap/Pa Only (09/30/22 12:33) Comprehensive Metabolic Panel (09/30/22 12:33) Myoglobin Serum (09/30/22 12:33) Protime With Inr (09/30/22 12:33) Partial Thromboplastin Time (09/30/22 12:33) O2 (09/30/22 12:33) Monitor-Rhythm Ecg Trace Only (09/30/22 12:33) Lipid Panel (10/01/22 06:00) Ed Iv/Invasive Line Start (09/30/22 12:33) Troponin I Hall (09/30/22 12:33) Ns Iv 1000 Ml (Sodium Chloride 0.9%) (09/30/22 12:45) Fentanyl Inj (Sublimaze Injection) (09/30/22 12:45) Ondansetron Injection (Zofran Injectio (09/30/22 12:45) Ct Chest Wo (09/30/22 12:57) Ekg Tracing (09/30/22 14:19) Troponin I Julissa (09/30/22 14:37) Medications Given in ED Current Medications Medications Dose Ordered Sig/Tania Route Start Time Stop Time Status Last Admin Dose Admin Fentanyl Citrate 25 mcg ONCE ONCE IVP 09/30/22 12:45 09/30/22 12:46 DC 09/30/22 12:42 25 MCG Ondansetron HCl 4 mg ONCE ONCE IVP 09/30/22 12:45 09/30/22 12:46 DC 09/30/22 12:42 4 MG Vital Signs/I&O 09/30/22 12:15 Pulse 48 Resp 15 B/P (MAP) 92/73 (79) Pulse Ox 98 O2 Delivery Room Air Initial ECG Impression Date: Sep 30, 2022 Initial ECG Impression Time: 12:30 Initial ECG Rate: 48 Initial ECG Rhythm: Normal Sinus, S.Alvaro Initial ECG Intervals MT interval 198 QRS [address] segment elevation or depression, sinus bradycardia noted. No ectopy Diagnostic Imaging Diagonstic Imaging: CT Comments [facility] [place] NAME: BERNA SINHA [facility] REC#: [id number] PT STATUS: REG ER : 1960 PHYSICIAN: LAUREN ISAAC MD ADMIT DATE: 09/30/22/ER Draft Date of Exam:09/30/22 CT CHEST WO PROCEDURE: CT chest without contrast. TECHNIQUE: Multiple contiguous axial images were obtained through the chest without the use of intravenous contrast. Auto Exposure Controls were utilized during the CT exam to meet ALARA standards for radiation dose reduction. INDICATION: Right-sided chest pain, history of aneurysm. COMPARISON: 06/03/2022. FINDINGS: The ascending aorta measures 4.5 x 4.4 cm in size (image 80 series 2). This is stable since May 2022. There is a small amount of pericardial fluid without a mahi effusion seen. No significant surrounding edema is seen about the aorta. The intraluminal aorta is not evaluated in the absence of contrast. The heart is normal in size. No significant lymphadenopathy is seen in the mediastinum or axillary region. There is no pleural effusion and no pneumothorax. No consolidation is seen. No masses are present. No acute osseous abnormality is seen. There are degenerative changes in the spine. Imaged portions of the upper abdomen demonstrate no acute abnormality. IMPRESSION: 1. Stable ascending aortic aneurysm. 2. No acute pulmonary abnormality. Dictated on workstation # [id number] Dict: 09/30/22 1400 Trans: 09/30/22 1408 [facility] [id number] Interpreted by: ALIE MOYER MD Electronically signed by: Yulia Imaging: Xray Plain Films/CT/US/NM/MRI: chest Comments [facility] [place] NAME: BERNA SINHA [facility] REC#: [id number] PT STATUS: REG ER : 1960 PHYSICIAN: LAUREN ISAAC MD ADMIT DATE: 09/30/22/ER Draft Date of Exam:09/30/22 CHEST 1 VIEW, AP/PA ONLY INDICATION: Chest pain. COMPARISON: CT from same day. FINDINGS: Single frontal view of the chest demonstrates normal heart size and pulmonary vascularity. The lungs are well aerated and clear. No large pleural effusion or pneumothorax is seen. The visualized osseous structures show no acute abnormalities. IMPRESSION: 1. No acute cardiopulmonary process. Dictated on workstation # [id number] Dict: 09/30/22 1344 Trans: 09/30/22 1349 [id number] Interpreted by: CANDIE COMBS MD Electronically signed by: Departure Communication (Admissions) Time/Spoke to Consulting Phy: 15:[address] Bruce - f/u in clinic Impression Primary Impression: Chest pain Qualified Codes: R07.9 - Chest pain, unspecified Additional Impression: Thoracic aortic aneurysm without rupture Qualified Codes: I71.20 - Thoracic aortic aneurysm, without rupture, unspecified Disposition: 01 HOME, SELF-CARE Condition: Stable Departure-Patient Inst. Decision time for Depature: 15:47 Referrals: [facility] (PCP/Family) Primary Care Physician Patient Instructions: Thoracic Aortic Aneurysm, Chest Pain (DC) Add. Discharge Instructions: Continue your daily medications as prescribed. Dr. Bruce wants to see you in 2 to 4 weeks in his clinic. Please call his office to schedule this appointment. Return to the emergency department if you have any sudden worsening of pain especially with shortness of breath, vomiting or passing out spell. Copy Copies To 1: ANJELICA BRUCE MD Copies To 2: PETEY DEL RIO KATHRYN M MD Sep 30, 2022 12:30
[2022-09-30 12:42] LABS: ALBUMIN 3.8 GM/DL (3.2-4.5); POTASSIUM 3.5 MMOL/L (3.6-5.0)
[2022-09-30 12:44] LABS: TOTAL PROTEIN 6.8 GM/DL (6.4-8.2)
[2022-09-30] MEDS ORDERED: ONDANSETRON 4 MG/2 ML (SDV) Z0FRAN IVP ONE (12:45)
[2022-09-30] MEDS ORDERED: NS IV 1000 ML 1,000 ML IV SCH (12:45)
[2022-09-30] MEDS ORDERED: fentaNYL INJ 100 MCG/2 ML AMP IVP ONE (12:45)
[2022-09-30 12:46] LABS: BILIRUBIN,TOTAL 0.6 MG/DL (0.1-1.0)
[2022-09-30 12:48] LABS: CREATININE SERUM 2.09 MG/DL (0.60-1.30)
[2022-09-30 12:51] LABS: MAGNESIUM 2.1 MG/DL (1.6-2.4)
--- NOTE | 2022-09-30 12:51 | Consultation-Cardiology ---
HPI-Cardiology Cardiology Consultation Date of Consultation 09/30/22 Date of Admission Time Seen by Provider: 12:47 Indication: Chest pain HPI 62-year-old gentleman with history of thoracic aortic aneurysm. Has been in his usual state of health, last seen in my office in 2020. Was at work when he had a sudden onset of back pain and chest pain. Patient took additional carvedilol and came to the emergency room, he was noted to be bradycardic and hypotension. Denied any shortness of breath. No palpitation, no syncope or near syncopal episodes. Home Medications & Allergies Allergies: Coded Allergies: No Known Drug Allergies (Unverified , 02/24/17) Home Medication List Reviewed: Yes LUZ-Fkzaco-Ayjlkv Hx Patient Social History Marital Status: Employed/Student: employed Smoking Status: Former Smoker Type Used: Smokeless Tobacco Recent Hopitalizations: No Have you traveled recently?: No Alcohol Use?: No Immunizations Up To Date Tetanus Booster (TDap): Unknown Date of Influenza Vaccine: May 21, 2017 Past Medical History Discussed below Family Medical History Significant Family History: No Pertinent Family Hx Review of Systems-General Review of Systems Constitutional: see HPI EENTM: see HPI, no symptoms reported Respiratory: no symptoms reported, see HPI Cardiovascular: see HPI, chest pain; No edema, No Hx of Intervention, No palpitations, No syncope, No vascular heart diseas, No other Gastrointestinal: no symptoms reported, see HPI Genitourinary: no symptoms reported, see HPI Musculoskeletal: back pain Skin: no symptoms reported Psychiatric/Neurological: No Symptoms Reported, See HPI All Other Systems Reviewed Negative Unless Noted: Yes Reviewed Test Results Reviewed Test Results Lab Laboratory Tests Test 09/30/22 12:22 Range/Units Sodium Level 137 135-145 MMOL/L Potassium Level 3.5 L 3.6-5.0 MMOL/L Chloride Level 106 98-107 MMOL/L Carbon Dioxide Level 21 21-32 MMOL/L Anion Gap 10 5-14 MMOL/L Creatinine 2.09 H 0.60-1.30 MG/DL Estimat Glomerular Filtration Rate 35 Glucose Level 143 H 70-105 MG/DL Calcium Level 9.0 8.5-10.1 MG/DL Corrected Calcium 9.2 8.5-10.1 MG/DL Total Bilirubin 0.6 0.1-1.0 MG/DL Alkaline Phosphatase 71 40-136 U/L Total Protein 6.8 6.4-8.2 GM/DL Albumin 3.8 3.2-4.5 GM/DL Physical Exam Physical Exam Vital Signs Vital Signs - First Documented 09/30/22 12:15 Pulse 48 Resp 15 B/P (MAP) 92/73 (79) Pulse Ox 98 O2 Delivery Room Air Capillary Refill : Less Than 3 Seconds Height, Weight, BMI Height: 6'0.00" Weight: 173lbs. 0.0oz. 78.031950nz; 22.00 BMI Method: General Appearance: No Apparent Distress, Thin Eyes: Bilateral Eye Normal Inspection, Bilateral Eye PERRL, Bilateral Eye EOMI HEENT: PERRL/EOMI Neck: Normal Inspection Respiratory: Lungs Clear, Normal Breath Sounds, No Accessory Muscle Use, No Respiratory Distress Cardiovascular: Regular Rate, Rhythm, Bradycardia (40's- 50), Systolic Murmur, Other (bilateral BP's equal in the upper 90's systolic) Gastrointestinal: Non Tender, Soft Back: Normal Inspection, No CVA Tenderness, No Vertebral Tenderness Extremity: Normal Inspection, Normal Range of Motion, Non Tender, No Calf Tenderness, No Pedal Edema Neurologic/Psychiatric: Alert, Oriented x3, No Motor/Sensory Deficits, Normal 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 Had chest pain radiating to the back. Will monitor, planning to repeat CT angiogram of the chest Thoracic aortic aneurysm CT of the chest in August 2020 reporting 4.7x4 point 6 ascending aorta. The aortic root is prominent. Planning to repeat CT scan History of recurrent chest pain, stress test done in November 2020 with diaphragmatic attenuation no significant ischemia or infarction, ejection fraction 60%, stress score 0. History of cardiac catheterization done over 5 years ago in [place] reporting that had no obstructive disease. Hypertension, currently hypotensive Took additional carvedilol today. Bradycardia probably secondary to medication, patient was on carvedilol 25 mg twice daily and took additional dose today. Hyperlipidemia, maintained on Lipitor 40 mg daily Tobaccoism, chewing tobacco Mild bilateral carotid stenosis by ultrasound in September 2020 History of right nephrectomy secondary to cancer. Clinical Quality Measures AMI/AHF: ASA po Prior to arrival: Yes (baby) ANJELICA SHAFFER MD Sep 30, 2022 12:51
[2022-09-30 12:56] LABS: BASOPHILS % (AUTO) 1 % (0-10); EOSINOPHILS # (AUTO) 0.1 10^3/uL (0.0-0.3); EOSINOPHILS % (AUTO) 2 % (0-10); HEMATOCRIT 34 % (40-54); HEMOGLOBIN 11.1 g/dL (13.3-17.7); LYMPHOCYTES # (AUTO) 1.3 10^3/uL (1.0-4.0); LYMPHOCYTES % (AUTO) 20 % (12-44); MEAN CORPUSCULAR HEMOGLOBIN 28 pg (25-34); MEAN CORPUSCULAR HGB CONC 33 g/dL (32-36); MEAN CORPUSCULAR VOLUME 84 fL (80-99); MEAN PLATELET VOLUME 9.4 fL (9.0-12.2); MONOCYTES # (AUTO) 0.5 10^3/uL (0.0-1.0); MONOCYTES % (AUTO) 7 % (0-12); NEUTROPHILS # (AUTO) 4.6 10^3/uL (1.8-7.8); NEUTROPHILS % (AUTO) 70 % (42-75); PLATELET COUNT 217 10^3/uL (130-400); WHITE BLOOD COUNT 6.6 10^3/uL (4.3-11.0)
[2022-09-30 13:03] LABS: INR 1.1 (0.8-1.4); PROTHROMBIN TIME PATIENT 14.3 SEC (12.2-14.7)
--- NOTE | 2022-09-30 13:50 | Diagnostic Imaging Report ---
INDICATION: Chest pain. COMPARISON: CT from same day. FINDINGS: Single frontal view of the chest demonstrates normal heart size and pulmonary vascularity. The lungs are well aerated and clear. No large pleural effusion or pneumothorax is seen. The visualized osseous structures show no acute abnormalities. IMPRESSION: 1. No acute cardiopulmonary process. Dictated by: Dictated on workstation # [id number]
--- NOTE | 2022-09-30 14:08 | Diagnostic Imaging Report ---
PROCEDURE: CT chest without contrast. TECHNIQUE: Multiple contiguous axial images were obtained through the chest without the use of intravenous contrast. Auto Exposure Controls were utilized during the CT exam to meet ALARA standards for radiation dose reduction. INDICATION: Right-sided chest pain, history of aneurysm. COMPARISON: 06/03/2022. FINDINGS: The ascending aorta measures 4.5 x 4.4 cm in size (image 80 series 2). This is stable since May 2022. There is a small amount of pericardial fluid without a mahi effusion seen. No significant surrounding edema is seen about the aorta. The intraluminal aorta is not evaluated in the absence of contrast. The heart is normal in size. No significant lymphadenopathy is seen in the mediastinum or axillary region. There is no pleural effusion and no pneumothorax. No consolidation is seen. No masses are present. No acute osseous abnormality is seen. There are degenerative changes in the spine. Imaged portions of the upper abdomen demonstrate no acute abnormality. IMPRESSION: 1. Stable ascending aortic aneurysm. 2. No acute pulmonary abnormality. Dictated by: Dictated on workstation # [id number]
[2022-09-30 15:58] VITALS: BP 114/83
== END 2022-09-30 15:58 | disposition home or self-care (01) ==
LOC: EDUNIT# 12:07 → ER 12:12
DX: I71.21 Aneurysm of the ascending aorta, without rupture (principal); R00.1 Bradycardia, unspecified; Z79.82 Long term (current) use of aspirin
CPT/HCPCS: 36415; 71045; 71250; 80053; 83735; 83874; 84484; 85025; 85610; 85730; 93005; 93041; 93306